=== PATIENT | female | born 1940 | race African-American/Black ===

== ENCOUNTER → 2016-11-20 | Outpatient (CLI) | payer MEDICARE ==
[2015-11-03 09:09] VITALS: BP 141/65
[~2016-11-20] MED LIST: AMLO10TA2 PO; ASPI-630 PO; LEVO75TA5 PO; LOSA100T6 PO; RANI150T2 PO
--- NOTE | 2016-11-20 09:46 | RAD ---
DATE: 11/20/2016 EXAM: DIGITAL DIAGNOSTIC BILATERAL HISTORY: 6 month follow-up breast biopsy COMPARISON: 05/22/2016 This study was interpreted with the benefit of Computerized Aided Detection (CAD). FINDINGS: Breast Density: HETERO The breast parenchyma Is heterogeneously dense, which could reduce sensitivity of mammography. Breast parenchyma level C. Nodular appearing bilateral breast similar to prior exam. Left breast biopsy clip marker identified IMPRESSION: Probably benign findings BI-RADS CATEGORY: 3 PROBABLE BENIGN-SHORT TERM F/U RECOMMENDED FOLLOW-UP: 6M 6 MONTH FOLLOW-UP PQRS compliance statement: Patient information was entered into a reminder system with a target due date 05/22/2017 for the next mammogram. Mammography is a sensitive method for finding small breast cancers, but it does not detect them all and is not a substitute for careful clinical examination. A negative mammogram does not negate a clinically suspicious finding and should not result in delay in biopsying a clinically suspicious abnormality. "Our facility is accredited by the [employer] Mammography Program."
== END | disposition home or self-care (01) ==
LOC: KCIC MAMMO 08:38
PROVIDERS: ATTEND Family Medicine
DX: R92.8 Other abnormal and inconclusive findings on diagnostic imaging of breast (principal)
CPT/HCPCS: G0204; 77066

== ENCOUNTER → 2017-01-22 | Outpatient (CLI) | payer MEDICARE ==
[2015-11-03 09:09] VITALS: BP 141/65
--- NOTE | 2017-01-22 16:25 | RAD ---
DOPPLER CAROTID BILAT Clinical Indication: Dizziness and unsteady gait. Procedure: Pulsed wave and color-flow duplex imaging was utilized to evaluate the extracranial carotid arteries. Comparison: None. Findings: RIGHT SIDE: Mild atherosclerotic plaques on grayscale images. CCA peak systolic velocity 80 cm/sec. ICA peak systolic velocity 100 cm/sec. The right ICA/CCA ratio is 1.24. Flow within the right vertebral artery and right ECA is directed antegrade. LEFT SIDE: moderate atherosclerotic plaque on stafford-scale images. CCA peak systolic velocity 107 cm/sec. ICA peak systolic velocity 148 cm/sec. The left ICA/CCA ratio is 2.2. Flow within the left vertebral artery and left ECA is directed antegrade. Carotid legend: CCA = common carotid artery ICA = internal carotid artery ECA = external carotid artery IMPRESSION: 1. Right carotid: No hemodynamically significant stenosis. Normal peak systolic velocity. 2. Left carotid: Elevated peak systolic velocity with moderate atherosclerotic disease corresponding to stenosis of 50-69%. Sign diagnostic
== END | disposition home or self-care (01) ==
LOC: US 15:25
PROVIDERS: ATTEND Family Medicine
DX: I70.8 Atherosclerosis of other arteries (principal); I65.22 Occlusion and stenosis of left carotid artery; R42 Dizziness and giddiness; I10 Essential (primary) hypertension
CPT/HCPCS: 93880

== ENCOUNTER → 2017-05-22 | Outpatient (CLI) | payer MEDICARE ==
[2015-11-03 09:09] VITALS: BP 141/65
--- NOTE | 2017-05-22 09:54 | KCIC ---
DATE: 05/22/2017 EXAM: MAMMO COURTNEY DIAG LT HISTORY: Six-month follow-up. Recent benign left breast biopsy. COMPARISON: 11/20/2016 This study was interpreted with the benefit of Computerized Aided Detection (CAD). The breast parenchyma shows scattered fibroglandular densities. Breast parenchyma level B. FINDINGS: Digital MLO and CC mammograms left breast were obtained. Additionally digital breast tomosynthesis images (3D mammography) of the left breast in the MLO and CC projections were performed. Comparison study is dated 11/20/2016. The left breast parenchyma is composed of scattered fibroglandular densities which could obscure a lesion on mammography (breast density code B). A localizer clip is seen within the left breast, unchanged. No spiculated mass is seen. No malignant appearing calcification is noted. Digital breast tomosynthesis images demonstrate no spiculated mass or malignant appearing calcification involving the left breast. Since the previous examination there has been no significant interval change. IMPRESSION: BI-RADS Category 2 benign findings. There is no mammographic evidence of malignancy. BI-RADS CATEGORY: 2 BENIGN FINDING(S) RECOMMENDED FOLLOW-UP: 12M 12 MONTH FOLLOW-UP PQRS compliance statement: Patient information was entered into a reminder system with a target due date 11/20/2017 for the next mammogram. Mammography is a sensitive method for finding small breast cancers, but it does not detect them all and is not a substitute for careful clinical examination. A negative mammogram does not negate a clinically suspicious finding and should not result in delay in biopsying a clinically suspicious abnormality. "Our facility is accredited by the [employer] Mammography Program."
== END | disposition home or self-care (01) ==
LOC: KCIC MAMMO 08:37
PROVIDERS: ATTEND Family Medicine
DX: R92.8 Other abnormal and inconclusive findings on diagnostic imaging of breast (principal)
CPT/HCPCS: G0206; G0279; 77061; 77065

== ENCOUNTER 2017-11-08 09:27 | Emergency (ER) | payer MEDICARE ==
[2017-11-08 10:40] LABS: ADD MAN DIFF? NO
[2017-11-08 10:55] LABS: BASO % 0 % (0-3); EOS # 0.1 x10^3/uL (0.0-0.7); EOS % 1 % (0-3); HEMATOCRIT 41.3 % (36.0-47.0); HEMOGLOBIN 14.5 g/dL (12.0-15.5); LYMPH # 0.7 x10^3/uL (1.0-4.8); LYMPH % 9 % (24-48); MEAN CORPUSCULAR HEMOGLOBIN 31 pg (25-35); MEAN CORPUSCULAR HGB CONC 35 g/dL (31-37); MEAN CORPUSCULAR VOLUME 90 fL (79-100); MONO # 0.5 x10^3/uL (0.0-1.1); MONO % 6 % (0-9); NEUT # 6.2 x10^3uL (1.8-7.7); NEUT % 83 % (31-73); PLATELET COUNT 272 x10^3/uL (140-400); RED BLOOD COUNT 4.61 x10^6/uL (3.50-5.40); RED CELL DISTRIBUTION WIDTH 13.9 % (11.5-14.5); WHITE BLOOD COUNT 7.5 x10^3/uL (4.0-11.0)
[2017-11-08 10:58] LABS: ANION GAP 9 (6-14); BLOOD UREA NITROGEN 15 mg/dL (7-20); CALCIUM 9.3 mg/dL (8.5-10.1); CARBON DIOXIDE 27 mmol/L (21-32); CHLORIDE 104 mmol/L (98-107); CREATININE 0.8 mg/dL (0.6-1.0); GFR 83.9; GLUCOSE 121 mg/dL (70-99); POTASSIUM 3.8 mmol/L (3.5-5.1); SODIUM 140 mmol/L (136-145)
[2017-11-08 11:10] LABS: TROPONINI < 0.017 ng/mL (0.000-0.055)
[2017-11-08 11:12] LABS: NT-PRO BNP 38 pg/mL (0-449)
[2017-11-08] MEDS ORDERED: IV NORMAL SALINE 500ML BAG 500 ML IV (12:45)
[2017-11-08 14:14] LABS: BILIRUBIN,URINE NEGATIVE (NEG); CLARITY,URINE CLEAR; COLOR,URINE YELLOW; GLUCOSE,URINE NEGATIVE (NEG); NITRITE,URINE NEGATIVE (NEG); PROTEIN,URINE NEGATIVE (NEG-TRACE); UROBILINOGEN,URINE 0.2 mg/dL (0.2 mg/dL)
[2017-11-08 14:19] LABS: BACTERIA,URINE 0 /HPF (0-FEW); RBC,URINE 0 /HPF (0-2); SQUAMOUS EPITHELIAL CELL,UR FEW /LPF; WBC,URINE 20-40 /HPF (0-4)
== END 2017-11-08 14:45 | disposition home or self-care (01) ==
LOC: ER 09:27
DX: R55 Syncope and collapse (principal); E86.0 Dehydration; N39.0 Urinary tract infection, site not specified; I10 Essential (primary) hypertension; E03.9 Hypothyroidism, unspecified; K21.9 Gastro-esophageal reflux disease without esophagitis
CPT/HCPCS: 36415; 71045; 80048; 81001; 83880; 84484; 85025; 87086; 93005; 99285-25

== ENCOUNTER → 2017-11-21 | Outpatient (CLI) | payer MEDICARE | END | disposition home or self-care (01) | LOC: MAMMO 08:39 | DX: Z12.31 Encounter for screening mammogram for malignant neoplasm of breast (principal) | CPT/HCPCS: 77063; 77067 ==

== ENCOUNTER → 2017-12-30 | Outpatient (CLI) | payer MEDICARE | END | disposition home or self-care (01) | LOC: KCIC US 09:07 | DX: Z13.820 Encounter for screening for osteoporosis (principal); M85.88 Other specified disorders of bone density and structure, other site; I65.23 Occlusion and stenosis of bilateral carotid arteries; I10 Essential (primary) hypertension; E03.9 Hypothyroidism, unspecified; K21.9 Gastro-esophageal reflux disease without esophagitis; Z78.0 Asymptomatic menopausal state | CPT/HCPCS: 77080; 93880 ==

== ENCOUNTER → 2018-11-24 | Outpatient (CLI) | payer MEDICARE ==
[2017-11-08 14:22] VITALS: BP 139/76
[~2018-11-24] MED LIST changes: -AMLO10TA2 PO; +AMLO10TA8 PO; +LOSA100T14 PO; -LOSA100T6 PO; +NITR100C62 PO
--- NOTE | 2018-11-26 09:22 | RAD ---
DATE: 11/24/2018 8:00 AM EXAM: MAMMO COURTNEY SCREENING BILATERAL HISTORY: routine screening evaluation. COMPARISON: 09/15/2014 Bilateral CC and MLO views of the breasts were performed. Bilateral breast tomosynthesis was performed in CC and MLO projections. This study was interpreted with the benefit of Computerized Aided Detection (CAD). Breast Density: The breast parenchyma shows scattered fibroglandular densities. Breast parenchyma level B. FINDINGS: Benign calcifications are present. The parenchymal pattern appears stable. No suspicious masses, microcalcifications or architectural distortion is present to suggest malignancy in either breast. The visualized axillae are unremarkable. IMPRESSION: No mammographic evidence of malignancy. BI-RADS CATEGORY: 2 BENIGN FINDING(S) RECOMMENDED FOLLOW-UP: 12M 12 MONTH FOLLOW-UP Annual screening mammography is recommended, unless clinically indicated sooner based on symptoms or change in physical exam. PQRS compliance statement: Patient information was entered into a reminder system with a target due date 11/25/2019 for the next mammogram. Mammography is a sensitive method for finding small breast cancers, but it does not detect them all and is not a substitute for careful clinical examination. A negative mammogram does not negate a clinically suspicious finding and should not result in delay in biopsying a clinically suspicious abnormality. "Our facility is accredited by the [employer] Mammography Program." SALAZARD
== END | disposition home or self-care (01) ==
LOC: MAMMO 08:21
PROVIDERS: ATTEND Family Medicine
DX: Z12.31 Encounter for screening mammogram for malignant neoplasm of breast (principal); N64.89 Other specified disorders of breast
CPT/HCPCS: 77063; 77067

== ENCOUNTER 2019-09-13 09:44 | Inpatient (IN) | payer MEDICARE ==
[~2019-09-13] VITALS: Ht 152.4 cm; Wt 58.8 kg
[2019-09-13 10:29] LABS: BASO % 0 % (0-3); EOS % 0 % (0-3); HEMATOCRIT 38.5 % (36.0-47.0); HEMOGLOBIN 13.2 g/dL (12.0-15.5); LYMPH % 11 % (24-48); MEAN CORPUSCULAR HEMOGLOBIN 30 pg (25-35); MEAN CORPUSCULAR HGB CONC 34 g/dL (31-37); MEAN CORPUSCULAR VOLUME 87 fL (79-100); MONO # 0.8 x10^3/uL (0.0-1.1); MONO % 9 % (0-9); NEUT # 7.2 x10^3/uL (1.8-7.7); NEUT % 80 % (31-73); PLATELET COUNT 390 x10^3/uL (140-400); RED CELL DISTRIBUTION WIDTH 13.6 % (11.5-14.5); WHITE BLOOD COUNT 9.1 x10^3/uL (4.0-11.0)
[2019-09-13 10:39] LABS: PROTHROMBIN TIME PATIENT 12.8 SEC (11.7-14.0)
--- NOTE | 2019-09-13 10:41 | RAD ---
CHEST AP ONLY INDICATION: Cough, dyspnea. COMPARISON STUDY: 11/08/2017. FINDINGS: Lungs: Low lung volume. Patchy bilateral heterogeneous opacities. Indistinct pulmonary vasculature. Pleura: No pleural effusion or pneumothorax. Heart and Mediastinum: Normal cardiac size. Tortuous atherosclerotic aorta. IMPRESSION: Patchy bilateral heterogeneous opacities, which could represent pulmonary edema or multifocal infection. Electronically signed by: Devin Greenfield MD (09/13/2019 10:38 AM) [id number]
[2019-09-13 10:42] LABS: CREATININE 0.9 mg/dL (0.6-1.0); GFR 72.9; POTASSIUM 3.7 mmol/L (3.5-5.1)
[2019-09-13] MEDS ORDERED: cefTRIAXone IV Push 1 GM VIAL. IVP ONE (10:45)
[2019-09-13] MEDS ORDERED: AZITHRMYCN 500MG IVPB FOR OMNI 250 ML IV ONE (10:45)
[2019-09-13 10:47] LABS: ALBUMIN 2.7 g/dL (3.4-5.0); ALBUMIN/GLOBULIN RATIO 0.7 (1.0-1.7); MAGNESIUM 2.3 mg/dL (1.8-2.4); TOTAL BILIRUBIN 0.5 mg/dL (0.2-1.0); TOTAL PROTEIN 6.5 g/dL (6.4-8.2)
--- NOTE | 2019-09-13 11:05 | PHYS DOC ---
Past Medical History Past Medical History: GERD, Hypertension, Hypothyroid Past Surgical History: Other Additional Past Surgical Histo: Cataract, D&C Smoking Status: Never Smoker Alcohol Use: None Drug Use: None General Adult EDM: Chief Complaint: SHORTNESS OF BREATH HPI: HPI: Patient is a 78 year old female who was brought here by EMS from home due to trouble breathing and cough. Patient was exposed to her friend who has COVID-19 infection, patient was then tested positive for COVID-19 on September 01. Yesterday she started having trouble breathing. This morning she woke up she had more trouble breathing so EMS were called to take her here for evaluation. Patient has history hypertension. Patient denies any chest pain, no abdominal pain, no fever today. Patient says she has been quarantined herself home. Review of Systems: Review of Systems: Constitutional: Denies fever or chills. [] Eyes: Denies change in visual acuity. [] HENT: Denies nasal congestion or sore throat. [] Respiratory: Positive for cough or shortness of breath. [] Cardiovascular: Denies chest pain or edema. [] GI: Denies abdominal pain, nausea, vomiting, bloody stools or diarrhea. [] : Denies dysuria. [] Musculoskeletal: Denies back pain or joint pain. [] Integument: Denies rash. [] Neurologic: Denies headache, focal weakness or sensory changes. [] Endocrine: Denies polyuria or polydipsia. [] Lymphatic: Denies swollen glands. [] Psychiatric: Denies depression or anxiety. [] Heart Score: Risk Factors: Risk Factors: DM, Current or recent (<one month) smoker, HTN, HLP, family history of CAD, obesity. Risk Scores: Score 0 - 3: 2.5% MACE over next 6 weeks - Discharge Home Score 4 - 6: 20.3% MACE over next 6 weeks - Admit for Clinical Observation Score 7 - 10: 72.7% MACE over next 6 weeks - Early Invasive Strategies Current Medications: Current Medications Medications (Trade) Dose Ordered Sig/Meet Start Time Stop Time Status Last Admin Dose Admin Azithromycin 250 ml @ 250 mls/hr 1X ONCE 09/13/19 10:45 09/13/19 11:44 Ceftriaxone Sodium (Rocephin) 1 gm 1X ONCE 09/13/19 10:45 09/13/19 10:49 FL Allergies: Allergies: Allergies Coded Allergies Type Severity Reaction Last Updated Verified No Known Drug Allergies 11/03/15 No Physical Exam: PE: Constitutional: Well developed, well nourished, no acute distress, non-toxic appearance. [] HENT: Normocephalic, atraumatic, bilateral external ears normal, oropharynx moist, no oral exudates, nose normal. [] Eyes: PERRLA, EOMI, conjunctiva normal, no discharge. [] Neck: Normal range of motion, no tenderness, supple, no stridor. [] Cardiovascular:Heart rate regular rhythm, no murmur [] Lungs & Thorax: Bilateral breath sounds with diffused crackles to auscultation [] Abdomen: Bowel sounds normal, soft, no tenderness, no masses, no pulsatile masses. [] Skin: Warm, dry, no erythema, no rash. [] Back: No tenderness, no CVA tenderness. [] Extremities: No tenderness, no cyanosis, no clubbing, ROM intact, no edema. [] Neurologic: Alert and oriented X 3, normal motor function, normal sensory function, no focal deficits noted. [] Psychologic: Affect normal, judgement normal, mood normal. [] Current Patient Data: Labs: Laboratory Tests Test 09/13/19 10:12 White Blood Count 9.1 x10^3/uL (4.0-11.0) Red Blood Count 4.40 x10^6/uL (3.50-5.40) Hemoglobin 13.2 g/dL (12.0-15.5) Hematocrit 38.5 % (36.0-47.0) Mean Corpuscular Volume 87 fL (79-100) Mean Corpuscular Hemoglobin 30 pg (25-35) Mean Corpuscular Hemoglobin Concent 34 g/dL (31-37) Red Cell Distribution Width 13.6 % (11.5-14.5) Platelet Count 390 x10^3/uL (140-400) Neutrophils (%) (Auto) 80 % (31-73) H Lymphocytes (%) (Auto) 11 % (24-48) L Monocytes (%) (Auto) 9 % (0-9) Eosinophils (%) (Auto) 0 % (0-3) Basophils (%) (Auto) 0 % (0-3) Neutrophils # (Auto) 7.2 x10^3/uL (1.8-7.7) Lymphocytes # (Auto) 1.0 x10^3/uL (1.0-4.8) Monocytes # (Auto) 0.8 x10^3/uL (0.0-1.1) Eosinophils # (Auto) 0.0 x10^3/uL (0.0-0.7) Basophils # (Auto) 0.0 x10^3/uL (0.0-0.2) Prothrombin Time 12.8 SEC (11.7-14.0) Prothrombin Time INR 1.0 (0.8-1.1) Activated Partial Thromboplast Time 32 SEC (24-38) Sodium Level 139 mmol/L (136-145) Potassium Level 3.7 mmol/L (3.5-5.1) Chloride Level 102 mmol/L (98-107) Carbon Dioxide Level 29 mmol/L (21-32) Anion Gap 8 (6-14) Blood Urea Nitrogen 12 mg/dL (7-20) Creatinine 0.9 mg/dL (0.6-1.0) Estimated GFR (Cockcroft-Gault) 72.9 BUN/Creatinine Ratio 13 (6-20) Glucose Level 122 mg/dL (70-99) H Calcium Level 9.0 mg/dL (8.5-10.1) Magnesium Level 2.3 mg/dL (1.8-2.4) Total Bilirubin 0.5 mg/dL (0.2-1.0) Aspartate Amino Transferase (AST) 61 U/L (15-37) H Alanine Aminotransferase (ALT) 51 U/L (14-59) Alkaline Phosphatase 81 U/L (46-116) Troponin I Quantitative < 0.017 ng/mL (0.000-0.055) QP-Wmv-U-Type Natriuretic Peptide 272 pg/mL (0-449) Total Protein 6.5 g/dL (6.4-8.2) Albumin 2.7 g/dL (3.4-5.0) L Albumin/Globulin Ratio 0.7 (1.0-1.7) L Laboratory Tests 09/13/19 10:12 Laboratory Tests 09/13/19 10:12 Vital Signs: Vital Signs Date Time Temp Pulse Resp B/P (MAP) Pulse Ox O2 Delivery O2 Flow Rate FiO2 09/13/19 09:44 99.0 92 18 144/68 (93) 94 Nasal Cannula 3.0 99.0 EKG: EKG: EKG WAS [id number], HEART RATE OF 93 BPM, NO STEMI Radiology/Procedures: Radiology/Procedures: [][facility] [address] [place] [address] IMAGING REPORT Signed PATIENT: LUH DOMINGUEZ ACCOUNT: [id number] : 1940 LOCATION: ER AGE: 78 SEX: F EXAM STATUS: PRE ER ORD. PHYSICIAN: EDWARD DUNN DO REASON: cough, soa PROCEDURE: CHEST AP ONLY CHEST AP ONLY INDICATION: Cough, dyspnea. COMPARISON STUDY: 11/08/2017. FINDINGS: Lungs: Low lung volume. Patchy bilateral heterogeneous opacities. Indistinct pulmonary vasculature. Pleura: No pleural effusion or pneumothorax. Heart and Mediastinum: Normal cardiac size. Tortuous atherosclerotic aorta. IMPRESSION: Patchy bilateral heterogeneous opacities, which could represent pulmonary edema or multifocal infection. Electronically signed by: Joni Greenfield MD (09/13/2019 10:38 AM) [id number] DICTATED and SIGNED BY: JONI GREENFIELD MD DATE: 09/13/19 1038 Course & Med Decision Making: Course & Med Decision Making Pertinent Labs and Imaging studies reviewed. (See chart for details) Patient is an 78-year-old female with the new coronavirus infection, had pneumonia with bilateral infiltrations, requires oxygen, will admit to the hospital for treatment. COVID-19 CRITERIA: The patient was evaluated during the global COVID-19 pandemic, and that diagnosis was suspected/considered upon their initial presentation. Their evaluation, treatment and testing was consistent with current guidelines for patients who present with complaints or symptoms that may be related to COVID-19. Critical care time was [45] minutes which includes time at bedside, spent in discussion of patient's care with specialist and/or family members, with interpretation of laboratory and/or radiological studies and is exclusive of procedures. Dragon Disclaimer: Dragon Disclaimer: This electronic medical record was generated, in whole or in part, using a voice recognition dictation system. Departure Departure Impression: Primary Impression: COVID-19 virus infection Additional Impression: Pneumonia Disposition: 09 ADMITTED INPATIENT Admitting Physician: GENE (DR. DIEHL) Condition: STABLE Referrals: SHYLA ANTHONY MD (PCP) COVID-19 Assessment: COVID-19 Patient Risks: Age 65 or older: Yes Sign of co-morbidity: Yes Exp to person + for COVID: Yes Exp to PUI: Yes Travel from affected area: No Lower respiratory symptoms: Yes Fever: No Other: No PPE Use: Full PPE with N95 mask or PAPR: Yes (FULLE PPE WITH PAPR) EDWARD DUNN DO Sep 13, 2019 11:05
[2019-09-13] MEDS ORDERED: ONDANSETRON PF 4 MG/2 ML VIAL. IV PRN (11:30)
--- NOTE | 2019-09-13 12:16 | NUR ---
IP: Pt admitted with dx of COVID, confirmed on 09/02/19 requiring pt to be in airborne/contact precautions using a face shield.
--- NOTE | 2019-09-13 12:51 | HP ---
ADMIT DATE: 09/13/2019 CHIEF COMPLAINT: Shortness of breath. HISTORY OF PRESENT ILLNESS: The patient is a pleasant 78-year-old female who tested positive for COVID-19 back on 09/02/2019. She is now 12 days into this and she is still having symptoms. In fact, she states she thinks she had it for another 10 days prior to this so in total, she had it for probably 20 days. She is now still short of breath. Chest x-ray showing bilateral infiltrates. She has a low-grade fever of 99. Her sats were little low at 94% on 3 liters. I discussed the case with ER physician. We are going to admit the patient, put her on IV antibiotics, azithromycin, Plaquenil, vitamins and consult Pulmonary and Infectious Disease. PAST MEDICAL HISTORY: GERD, hypertension, hypothyroidism, cataracts, D and C and recent diagnosis of COVID-19. ALLERGIES: None. FAMILY HISTORY: Diabetes. SOCIAL HISTORY: She does not drink, smoke or take drugs. MEDICATIONS: Reviewed, please refer to the MRAD. REVIEW OF SYSTEMS: GENERAL: No history of weight change, weakness or fevers. SKIN: No bruising, hair changes or rashes. EYES: No blurred, double or loss of vision. NOSE AND THROAT: No history of nosebleeds, hoarseness or sore throat. HEART: No history of palpitations, chest pain or shortness of breath on exertion. LUNGS: she complains of shortness of breath. GASTROINTESTINAL: Denies changes in appetite, nausea, vomiting, diarrhea or constipation. GENITOURINARY: No history of frequency, urgency, hesitancy or nocturia. NEUROLOGIC: Denies history of numbness, tingling, tremor or weakness. PSYCHIATRIC: No history of panic, anxiety or depression. ENDOCRINE: No history of heat or cold intolerance, polyuria or polydipsia. EXTREMITIES: Denies muscle weakness, joint pain, pain on walking or stiffness. PHYSICAL EXAMINATION: VITALS: Within normal limits and are stable. GENERAL: No apparent distress. Alert and oriented. HEENT: Normal cephalic atraumatic, external auditory canals are patent EYES: Extraocular muscles are intact, pupils are equally round and reactive to light and accommodation MUSCULOSKELETAL: Well developed, well nourished, good range of motion ENDOCRINE: No thyromegaly was palpated LYMPHATICS: No cervical chain or axillary nodes were noted HEMATOPOIETIC: No bruising NECK: Supple, no JVD, no thyromegaly was noted. LUNGS: She has bibasilar crackles. HEART: RRR, S1, S2 present. Peripheral pulses intact, no obvious murmurs were noted. ABDOMEN: Soft, nontender. Positive bowel sounds no organomegaly, normal bowel sounds. EXTREMITIES: Without any cyanosis, clubbing, or edema. Pedal pulses intact, Homans sign is negative. NEUROLOGIC: Normal speech, normal tone. A & O x 3, moves all extremities, no obvious focal deficits. PSYCHIATRIC: Normal affect, normal mood. Stable. SKIN: No ulcerations or rashes, good skin turgor, no jaundice. VASCULAR: Good capillary refill, neurovascular bundle appears to be intact. IMAGING: Chest x-ray shows bilateral ground glass appearance consistent with probable viral pneumonia and/or bacterial pneumonia. LABORATORY DATA: White count 9, hemoglobin 13, platelets 390. Electrolytes are normal. ASSESSMENT AND PLAN: Bilateral pneumonia. Suspect progression of COVID-19 disease. The patient is being admitted. We will start IV antibiotics. Consult Pulmonary, consult Infectious Disease. Home meds, DVT prophylaxis. Full code, trend labs. TOTAL TIME: 32 minutes. TRACEY DIEHL DO DR: ALONDRA/alexa JOB#: [id number] / [id number]
[2019-09-13] MEDS ORDERED: FAMO20TA5 PO (14:00)
[2019-09-13] MEDS ORDERED: OLME40TA12 PO (14:04)
[2019-09-13 15:00] VITALS: BP 133/60
--- NOTE | 2019-09-13 15:04 | PDOC ---
Infectious Disease Note Vital Sign Vital Signs Vital Signs Date Time Temp Pulse Resp B/P (MAP) Pulse Ox O2 Delivery O2 Flow Rate FiO2 09/13/19 12:31 87 16 122/58 (79) 98 Nasal Cannula 3.0 09/13/19 09:44 99.0 99.0 Labs Lab Laboratory Tests Test 09/13/19 10:12 White Blood Count 9.1 x10^3/uL (4.0-11.0) Red Blood Count 4.40 x10^6/uL (3.50-5.40) Hemoglobin 13.2 g/dL (12.0-15.5) Hematocrit 38.5 % (36.0-47.0) Mean Corpuscular Volume 87 fL (79-100) Mean Corpuscular Hemoglobin 30 pg (25-35) Mean Corpuscular Hemoglobin Concent 34 g/dL (31-37) Red Cell Distribution Width 13.6 % (11.5-14.5) Platelet Count 390 x10^3/uL (140-400) Neutrophils (%) (Auto) 80 % (31-73) Lymphocytes (%) (Auto) 11 % (24-48) Monocytes (%) (Auto) 9 % (0-9) Eosinophils (%) (Auto) 0 % (0-3) Basophils (%) (Auto) 0 % (0-3) Neutrophils # (Auto) 7.2 x10^3/uL (1.8-7.7) Lymphocytes # (Auto) 1.0 x10^3/uL (1.0-4.8) Monocytes # (Auto) 0.8 x10^3/uL (0.0-1.1) Eosinophils # (Auto) 0.0 x10^3/uL (0.0-0.7) Basophils # (Auto) 0.0 x10^3/uL (0.0-0.2) Prothrombin Time 12.8 SEC (11.7-14.0) Prothromb Time International Ratio 1.0 (0.8-1.1) Activated Partial Thromboplast Time 32 SEC (24-38) Sodium Level 139 mmol/L (136-145) Potassium Level 3.7 mmol/L (3.5-5.1) Chloride Level 102 mmol/L (98-107) Carbon Dioxide Level 29 mmol/L (21-32) Anion Gap 8 (6-14) Blood Urea Nitrogen 12 mg/dL (7-20) Creatinine 0.9 mg/dL (0.6-1.0) Estimated GFR (Cockcroft-Gault) 72.9 BUN/Creatinine Ratio 13 (6-20) Glucose Level 122 mg/dL (70-99) Lactic Acid Level 1.6 mmol/L (0.4-2.0) Calcium Level 9.0 mg/dL (8.5-10.1) Magnesium Level 2.3 mg/dL (1.8-2.4) Total Bilirubin 0.5 mg/dL (0.2-1.0) Aspartate Amino Transf (AST/SGOT) 61 U/L (15-37) Alanine Aminotransferase (ALT/SGPT) 51 U/L (14-59) Alkaline Phosphatase 81 U/L (46-116) Troponin I Quantitative < 0.017 ng/mL (0.000-0.055) [id number]-Type Natriuretic Peptide 272 pg/mL (0-449) Total Protein 6.5 g/dL (6.4-8.2) Albumin 2.7 g/dL (3.4-5.0) Albumin/Globulin Ratio 0.7 (1.0-1.7) Objective Assessment Acute respiratory failure with patchy bilateral opacities, reportedly positive for COVID-19. On 3L O2 -QT interval 0.32 sec -Reportedly [facility] dept notified patient that she tested positive on 09/01 -Exposed from a friend who has since from COVID. Fever Hypertension Hypothyroidism Plan Plan of Care Unable to confirm test results as both [facility] dept and PCP office are closed She is nearly 14 days out, repeat COVID -19. Also check influenza, strep pneumo Ag & mycoplasma as these have been found to occur concurrently with COVID-19. The 1st dose of Azithromycin and hydroxychloraquine were given in ER. Monitor QT interval/side effects Continue the Rocephin and azithromycin for 4 more days. Continue airborne isolation for presumptive COVID-19 f/u cultures and labs D/w nursing D/w Dr Mueller D/w Dr. Araya Full consult to follow Thank you [id number] Patient seen and examined. Chart reviewed in detail. Case discussed with TABLET MACHINE OPERATOR. Agree with above plan. ABDIRIZAK METZGER APRN Sep 13, 2019 15:04 FELICITA ARAYA MD Sep 14, 2019 17:48
[2019-09-13] MEDS: HYDROXYCHLOROQUINE (PROGRAM) 200 MG TABLET PO SCH ×2 (15:49→21:35)
[2019-09-13] MEDS: IV NORMAL SALINE 1000ML BAG 1,000 ML IV SCH (15:55)
[2019-09-13 19:00] VITALS: BP 141/65
[2019-09-13 19:22] LABS: INFLUENZA A PATIENT NEGATIVE (NEGATIVE); INFLUENZA B PATIENT NEGATIVE (NEGATIVE)
[2019-09-13] MEDS ORDERED: ASCO-219 PO (20:02)
[2019-09-13 20:24] LABS: MYCOPLASMA PATIENT NEGATIVE (NEGATIVE)
--- NOTE | 2019-09-13 20:51 | CONS ---
DATE OF CONSULTATION: 09/13/2019 PULMONARY CONSULTATION ATTENDING PHYSICIAN: Eda Dailey MD REASON FOR CONSULTATION: Pneumonia and COVID-19 positive. HISTORY OF PRESENT ILLNESS: The patient is 78-year-old who was tested positive for COVID-19 on 09/02/2019. The patient states that she continues to have persistent symptoms with gradual increase in dyspnea. The patient was still having low-grade fevers. She was, as a result, hospitalized. Her saturations were 94% on 3 liters. The patient's chest x-ray was reviewed, and it shows bilateral infiltrates consistent with pneumonia. She denies any nausea, no vomiting. She said she had diarrhea only for a day and it has resolved. She does not have any history of tobacco use. No history of deep vein thrombosis or pulmonary embolism. PAST MEDICAL HISTORY: Significant for GERD, hypertension, hypothyroidism, and cataracts. PAST SURGICAL HISTORY: D and C. ALLERGIES: None. FAMILY HISTORY: Diabetes. SOCIAL HISTORY: No history of tobacco or alcohol use. MEDICATIONS: Reviewed as listed in the MRAD including antibiotic, Rocephin and Zithromax along with hydroxychloroquine. REVIEW OF SYSTEMS: Ten-point systems were obtained. Pertinent positives discussed in my history of present illness, otherwise noncontributory. All systems that were negative were reviewed as well. FAMILY HISTORY: Unable to obtain from the patient. PHYSICAL EXAMINATION: GENERAL: She does not appear to be in any obvious respiratory distress, appears ill appearing. VITAL SIGNS: T-max of 100.8 and pulse ox is 98% on 3 liters. NECK: Without any JVD. SKIN: With no rash. IMAGING: Chest x-ray was reviewed, and it shows bilateral infiltrates consistent with pneumonia. LABORATORY DATA: Labs were reviewed. Influenza screen is negative. BUN 12, creatinine 0.9, albumin 2.7. INR 1.0. White cell count 9.1, hemoglobin 13.2 and platelets are 390. IMPRESSION: 1. COVID-19 pneumonia. 2. Acute hypoxic respiratory failure secondary to COVID-19 pneumonia. 3. Abnormal chest x-ray with bilateral infiltrates suggestive of COVID-19 pneumonia. Cannot exclude the possibility of superimposed bacterial pneumonia. 4. Nonsmoker. RECOMMENDATIONS: 1. We will continue with present oxygen, keep saturation 94% and above. 2. Continue antibiotic, Rocephin and Zithromax. Zithromax will be stopped on day 5. In addition, hydroxychloroquine has been initiated and the patient will do 5-day course. 3. We will obtain EKG and make sure QTc interval is not prolonged. 4. We will follow chest x-ray p.r.n. 5. We will also follow for her stability on oxygenation. 6. Discussed with RN and we will follow along with you. ANDRZEJ MOORE MD DR: BILLY/alexa JOB#: [id number] / [id number]
[2019-09-13] MEDS: ASCORBIC ACID 500 MG TABLET PO SCH (21:34)
--- NOTE | 2019-09-13 22:23 | CONS ---
DATE OF CONSULTATION: 09/13/2019 This is Clyde Kan, nurse practitioner dictating for Dr. Felicita Araya of Infectious Disease. REFERRING PHYSICIAN: Dr. Griggs. REASON FOR CONSULTATION: COVID-19, pneumonia. HISTORY OF PRESENT ILLNESS: This patient is an 78-year-old -[place] female who 2 weeks ago started not to feel very well with low-grade fevers. She self-quarantined as she was aware of being exposed to COVID-19 virus (from a friend who later ). She was seen by her primary care provider, Dr. Arellano on 09/02/2019 and reportedly was informed of having COVID-19 infection by [facility]. Over the last day or so, she has developed worsening cough, trouble breathing and fevers. A chest x-ray showed patchy bilateral heterogeneous opacities, which could represent pulmonary edema or multifocal infection. Given her history and findings she was given a first dose of azithromycin and hydroxychloroquine in the ER. She is now in airborne isolation. The patient states that she is feeling a little bit better. She is requiring 3 liters of oxygen and satting above 95%. She complains of a mild headache, persistent cough with phlegm production. She denies sinus congestion, sore throat, chest pain, chills, sweats or body aches. She has not been very hungry. She finds that food and even water taste funny to her . She denies nausea, vomiting or diarrhea. Denies rash or itching. She denies use of antibiotics or hospitalizations within the last 3 months. She denies recent traveling or pets at home. PAST MEDICAL HISTORY: Hypertension, GERD, arthritis, and hypothyroidism. PAST SURGICAL HISTORY: Cataract surgery and D and C. SOCIAL HISTORY: The patient lives at home alone. She is a nonsmoker. 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 ALLERGIES: No known drug allergies. MEDICATIONS: First dose of hydroxychloroquine, azithromycin, ceftriaxone, amlodipine, aspirin, Pepcid, Synthroid, losartan, and ondansetron. REVIEW OF SYSTEMS: Per HPI, otherwise all other review of systems are negative. PHYSICAL EXAMINATION: VITAL SIGNS: Temperature is 99.0, blood pressure 122/58, heart rate 87, respiratory rate 16, and pulse oximetry is 98% on 3 liters. BMI 21. GENERAL: The patient is propped up in bed, alert, in no apparent distress. HEENT: Pupils equally round. Oropharynx is pink and moist. No exudates or lesions. NECK: Supple. LUNGS: Clear to auscultation. No accessory muscle use. HEART: S1 and S2 regular. QT interval 0.32 seconds. ABDOMEN: Soft, nontender with bowel sounds present. EXTREMITIES: No gross edema or cyanosis. SKIN: Warm to touch. No signs of rash. NEUROLOGIC: Alert and answering questions appropriately. LABORATORY DATA: Today's WBC 9.1, hemoglobin 13.2, and platelets 390,000. Sodium 139, potassium 3.7, creatinine 0.9, BUN 12, and glucose 122. Lactic acid 1.6, magnesium 2.3, total bilirubin 0.5, AST 61, and ALT 51. Troponin less than 0.017 and albumin 2.7. Blood cultures and urinalysis pending. Chest x-ray per HPI. IMPRESSION: 1. Acute respiratory failure with patchy bilateral opacities reportedly positive for COVID-19. 2. Fever. 3. Hypertension. 4. Hypothyroidism. PLAN: I unable to confirm test results as both [facility] and her primary care provider's office are closed. She is nearly 14 days out now. Recommend repeating COVID-19. Also, recommend testing for influenza, strep pneumonia and mycoplasma as these have been found to occur concurrently with COVID-19. She received a first dose of azithromycin and hydroxychloroquine in the ER. Monitor QT interval and side effects. Continue the ceftriaxone and azithromycin for 4 more days. Continue airborne isolation. We will follow up on culture results and laboratory values. We will continue to follow along. Discussed with nursing. Thank you, Dr. Griggs, for asking us to participate in this patient's care. Should you have further questions or concerns, please call. FELICITA ARAYA MD DR: JOSE L/alexa JOB#: [id number] / [id number]
--- NOTE | 2019-09-13 22:41 | EKG ---
[facility] [address] [place] [address] Test Date: 2019-09-13 Test Time: 09:57:54 Pat Name: LUH DOMINGUEZ Department: Room: 654 1 Gender: F Compliance Associate: : [id number] Requested By: EDWARD DUNN Order Number: [id number] Reading MD: Aris Antonio MD Measurements Intervals Davis Rate: 93 P: 19 IA: 156 QRS: 1 QRSD: 128 T: 124 QT: 366 QTc: 458 Interpretive Statements SINUS RHYTHM IVCD Electronically Signed On 09-14-2019 9:48:36 CDT by Aris Antonio MD
[2019-09-13 23:04] VITALS: BP 110/77
[2019-09-14] MEDS: IV NORMAL SALINE 1000ML BAG 1,000 ML IV SCH (00:38)
[2019-09-14] MEDS: LEVOTHYROXINE 75 MCG TABLET PO SCH (03:16)
[2019-09-14 03:33] VITALS: BP 112/57
[2019-09-14] MEDS ORDERED: LEVOTHYROXINE 75 MCG TABLET PO SCH (06:00)
[2019-09-14 06:09] LABS: BASO % 0 % (0-3); EOS % 0 % (0-3); HEMATOCRIT 32.1 % (36.0-47.0); HEMOGLOBIN 10.9 g/dL (12.0-15.5); LYMPH % 11 % (24-48); MEAN CORPUSCULAR HEMOGLOBIN 30 pg (25-35); MEAN CORPUSCULAR HGB CONC 34 g/dL (31-37); MEAN CORPUSCULAR VOLUME 88 fL (79-100); MONO # 1.1 x10^3/uL (0.0-1.1); MONO % 13 % (0-9); NEUT # 6.3 x10^3/uL (1.8-7.7); NEUT % 75 % (31-73); PLATELET COUNT 350 x10^3/uL (140-400); RED BLOOD COUNT 3.64 x10^6/uL (3.50-5.40); RED CELL DISTRIBUTION WIDTH 13.7 % (11.5-14.5); WHITE BLOOD COUNT 8.5 x10^3/uL (4.0-11.0)
[2019-09-14 06:25] LABS: CREATININE 0.7 mg/dL (0.6-1.0); GFR 97.4; POTASSIUM 3.9 mmol/L (3.5-5.1)
[2019-09-14 07:00] VITALS: BP 121/57
[2019-09-14] MEDS: cefTRIAXone IV Push 1 GM VIAL. IVP SCH (08:47)
[2019-09-14] MEDS: amLODIPine BESYLATE 5 MG TABLET PO SCH (08:47)
[2019-09-14] MEDS: LOSARTAN POTASSIUM 50 MG TABLET. PO SCH (08:47)
[2019-09-14] MEDS: ASCORBIC ACID 500 MG TABLET PO SCH ×2 (08:47→20:42)
[2019-09-14] MEDS: ASPIRIN CHEWABLE 81 MG TABLET. PO SCH (08:48)
[2019-09-14] MEDS: FAMOTIDINE 20 MG TABLET. PO SCH (08:48)
[2019-09-14] MEDS ORDERED: AZITHROMYCIN 250 MG TABLET. PO SCH (09:00)
--- NOTE | 2019-09-14 10:52 | NUR ---
SW following. Discussed with RN, pt from home. Pt tested positive for COVID-19 some time ago, being retested. Pt requiring 3L oxygen, which pt does not have at home. SW will continue to follow.
[2019-09-14 11:04] VITALS: BP 131/58
--- NOTE | 2019-09-14 11:27 | PDOC ---
Infectious Disease Note Subjective Subjective eeling some better. Had a little bit of an appetite this am Constipated Fever better. No gross SOA/rash ROS ROS o/w neg Vital Sign Vital Signs Vital Signs Date Time Temp Pulse Resp B/P (MAP) Pulse Ox O2 Delivery O2 Flow Rate FiO2 09/14/19 11:04 99.8 86 19 131/58 (82) 94 Nasal Cannula 3.0 99.8 Physical Exam PHYSICAL EXAM GENERAL: The patient is propped up in a chair, alert, in no apparent distress. Looks well HEENT: Pupils equally round. Oropharynx is pink and moist. No exudates or lesions. NECK: Supple. LUNGS: Clear to auscultation. No accessory muscle use. HEART: S1 and S2 regular. QT interval 0.32 seconds. ABDOMEN: Soft, nontender with bowel sounds present. EXTREMITIES: No gross edema or cyanosis. SKIN: Warm to touch. No signs of rash. NEUROLOGIC: Alert and answering questions appropriately. Labs Lab Laboratory Tests Test 09/13/19 18:30 09/14/19 04:55 Influenza Type A Antigen Negative (NEGATIVE) Influenza Type B Antigen Negative (NEGATIVE) White Blood Count 8.5 x10^3/uL (4.0-11.0) Red Blood Count 3.64 x10^6/uL (3.50-5.40) Hemoglobin 10.9 g/dL (12.0-15.5) Hematocrit 32.1 % (36.0-47.0) Mean Corpuscular Volume 88 fL (79-100) Mean Corpuscular Hemoglobin 30 pg (25-35) Mean Corpuscular Hemoglobin Concent 34 g/dL (31-37) Red Cell Distribution Width 13.7 % (11.5-14.5) Platelet Count 350 x10^3/uL (140-400) Neutrophils (%) (Auto) 75 % (31-73) Lymphocytes (%) (Auto) 11 % (24-48) Monocytes (%) (Auto) 13 % (0-9) Eosinophils (%) (Auto) 0 % (0-3) Basophils (%) (Auto) 0 % (0-3) Neutrophils # (Auto) 6.3 x10^3/uL (1.8-7.7) Lymphocytes # (Auto) 1.0 x10^3/uL (1.0-4.8) Monocytes # (Auto) 1.1 x10^3/uL (0.0-1.1) Eosinophils # (Auto) 0.0 x10^3/uL (0.0-0.7) Basophils # (Auto) 0.0 x10^3/uL (0.0-0.2) Sodium Level 141 mmol/L (136-145) Potassium Level 3.9 mmol/L (3.5-5.1) Chloride Level 107 mmol/L (98-107) Carbon Dioxide Level 25 mmol/L (21-32) Anion Gap 9 (6-14) Blood Urea Nitrogen 9 mg/dL (7-20) Creatinine 0.7 mg/dL (0.6-1.0) Estimated GFR (Cockcroft-Gault) 97.4 Glucose Level 99 mg/dL (70-99) Calcium Level 8.0 mg/dL (8.5-10.1) Micro Microbiology 09/13/19 Blood Culture - Preliminary, Resulted NO GROWTH AFTER 1 DAY Objective Assessment Acute respiratory failure with patchy bilateral opacities, reportedly positive for COVID-19. On 2L O2 -QT interval 0.32 sec -Reportedly [facility] dept notified patient that she tested positive on 09/01 -Exposed from a friend who has since from COVID. Fever - Flu neg Hypertension Hypothyroidism Plan Plan of Care Unable to confirm test results as both [facility] dept and PCP office are closed She is nearly 14 days out, repeat COVID -19. Also check strep pneumo Ag & mycoplasma as these have been found to occur concur rently with COVID-19. The 1st dose of Azithromycin and hydroxychloraquine were given in ER. Monitor QT interval/side effects Continue the Rocephin and change azithromycin to doxy in am Cont Hydrox at 200 mg - given fever/symptoms and known exposure labs in am Continue airborne isolation for presumptive COVID-19 f/u cultures and labs D/w nursing AISHWARYA JENKINS MD Sep 14, 2019 11:27
[2019-09-14] MEDS ORDERED: ACETAMINOPHEN 325 MG TABLET. PO PRN (12:00)
[2019-09-14] MEDS: HYDROXYCHLOROQUINE 200 MG TABLET PO SCH ×2 (12:37→20:42)
--- NOTE | 2019-09-14 13:46 | PDOC ---
PROGRESS NOTES Chief Complaint Chief Complaint 1. Acute respiratory failure with patchy bilateral opacities reportedly positive for COVID-19. 2. Acute febrile illness 3. Essential Hypertension. 4. Hypothyroidism acquired History of Present Illness History of Present Illness No acute events reported overnight, case discussed with nursing staff patient in no acute distress no complaints during my visit, informed her about her negative results from Mycoplasma and influenza, reassurance provided. Vitals Vitals Vital Signs Date Time Temp Pulse Resp B/P (MAP) Pulse Ox O2 Delivery O2 Flow Rate FiO2 09/14/19 11:04 99.8 86 19 131/58 (82) 94 Nasal Cannula 3.0 99.8 Physical Exam Physical Exam GENERAL: The patient is lying in bed in no apparent distress, chronically ill appearing. Looks well HEENT: Pupils equally round. Oropharynx is pink and moist. No exudates or lesions. NECK: Supple. LUNGS: Clear to auscultation. No accessory muscle use. HEART: S1 and S2 regular. QT interval 0.32 seconds. ABDOMEN: Soft, nontender with bowel sounds present. EXTREMITIES: No gross edema or cyanosis. SKIN: Warm to touch. No signs of rash. NEUROLOGIC: Alert and answering questions appropriately. Labs LABS Laboratory Tests Test 09/13/19 18:30 09/14/19 04:55 Influenza Type A Antigen Negative (NEGATIVE) Influenza Type B Antigen Negative (NEGATIVE) White Blood Count 8.5 x10^3/uL (4.0-11.0) Red Blood Count 3.64 x10^6/uL (3.50-5.40) Hemoglobin 10.9 g/dL (12.0-15.5) Hematocrit 32.1 % (36.0-47.0) Mean Corpuscular Volume 88 fL (79-100) Mean Corpuscular Hemoglobin 30 pg (25-35) Mean Corpuscular Hemoglobin Concent 34 g/dL (31-37) Red Cell Distribution Width 13.7 % (11.5-14.5) Platelet Count 350 x10^3/uL (140-400) Neutrophils (%) (Auto) 75 % (31-73) Lymphocytes (%) (Auto) 11 % (24-48) Monocytes (%) (Auto) 13 % (0-9) Eosinophils (%) (Auto) 0 % (0-3) Basophils (%) (Auto) 0 % (0-3) Neutrophils # (Auto) 6.3 x10^3/uL (1.8-7.7) Lymphocytes # (Auto) 1.0 x10^3/uL (1.0-4.8) Monocytes # (Auto) 1.1 x10^3/uL (0.0-1.1) Eosinophils # (Auto) 0.0 x10^3/uL (0.0-0.7) Basophils # (Auto) 0.0 x10^3/uL (0.0-0.2) Sodium Level 141 mmol/L (136-145) Potassium Level 3.9 mmol/L (3.5-5.1) Chloride Level 107 mmol/L (98-107) Carbon Dioxide Level 25 mmol/L (21-32) Anion Gap 9 (6-14) Blood Urea Nitrogen 9 mg/dL (7-20) Creatinine 0.7 mg/dL (0.6-1.0) Estimated GFR (Cockcroft-Gault) 97.4 Glucose Level 99 mg/dL (70-99) Calcium Level 8.0 mg/dL (8.5-10.1) Assessment and Plan Assessmemt and Plan Problems Medical Problems: (1) COVID-19 virus infection Status: Acute (2) Pneumonia Status: Acute Comment Review of Relevant I have reviewed the following items chucky (where applicable) has been applied. Labs Laboratory Tests Test 09/13/19 10:12 09/13/19 18:30 09/14/19 04:55 White Blood Count 9.1 x10^3/uL (4.0-11.0) 8.5 x10^3/uL (4.0-11.0) Red Blood Count 4.40 x10^6/uL (3.50-5.40) 3.64 x10^6/uL (3.50-5.40) Hemoglobin 13.2 g/dL (12.0-15.5) 10.9 g/dL (12.0-15.5) Hematocrit 38.5 % (36.0-47.0) 32.1 % (36.0-47.0) Mean Corpuscular Volume 87 fL (79-100) 88 fL (79-100) Mean Corpuscular Hemoglobin 30 pg (25-35) 30 pg (25-35) Mean Corpuscular Hemoglobin Concent 34 g/dL (31-37) 34 g/dL (31-37) Red Cell Distribution Width 13.6 % (11.5-14.5) 13.7 % (11.5-14.5) Platelet Count 390 x10^3/uL (140-400) 350 x10^3/uL (140-400) Neutrophils (%) (Auto) 80 % (31-73) 75 % (31-73) Lymphocytes (%) (Auto) 11 % (24-48) 11 % (24-48) Monocytes (%) (Auto) 9 % (0-9) 13 % (0-9) Eosinophils (%) (Auto) 0 % (0-3) 0 % (0-3) Basophils (%) (Auto) 0 % (0-3) 0 % (0-3) Neutrophils # (Auto) 7.2 x10^3/uL (1.8-7.7) 6.3 x10^3/uL (1.8-7.7) Lymphocytes # (Auto) 1.0 x10^3/uL (1.0-4.8) 1.0 x10^3/uL (1.0-4.8) Monocytes # (Auto) 0.8 x10^3/uL (0.0-1.1) 1.1 x10^3/uL (0.0-1.1) Eosinophils # (Auto) 0.0 x10^3/uL (0.0-0.7) 0.0 x10^3/uL (0.0-0.7) Basophils # (Auto) 0.0 x10^3/uL (0.0-0.2) 0.0 x10^3/uL (0.0-0.2) Prothrombin Time 12.8 SEC (11.7-14.0) Prothromb Time International Ratio 1.0 (0.8-1.1) Activated Partial Thromboplast Time 32 SEC (24-38) Sodium Level 139 mmol/L (136-145) 141 mmol/L (136-145) Potassium Level 3.7 mmol/L (3.5-5.1) 3.9 mmol/L (3.5-5.1) Chloride Level 102 mmol/L (98-107) 107 mmol/L (98-107) Carbon Dioxide Level 29 mmol/L (21-32) 25 mmol/L (21-32) Anion Gap 8 (6-14) 9 (6-14) Blood Urea Nitrogen 12 mg/dL (7-20) 9 mg/dL (7-20) Creatinine 0.9 mg/dL (0.6-1.0) 0.7 mg/dL (0.6-1.0) Estimated GFR (Cockcroft-Gault) 72.9 97.4 BUN/Creatinine Ratio 13 (6-20) Glucose Level 122 mg/dL (70-99) 99 mg/dL (70-99) Lactic Acid Level 1.6 mmol/L (0.4-2.0) Calcium Level 9.0 mg/dL (8.5-10.1) 8.0 mg/dL (8.5-10.1) Magnesium Level 2.3 mg/dL (1.8-2.4) Total Bilirubin 0.5 mg/dL (0.2-1.0) Aspartate Amino Transf (AST/SGOT) 61 U/L (15-37) Alanine Aminotransferase (ALT/SGPT) 51 U/L (14-59) Alkaline Phosphatase 81 U/L (46-116) Troponin I Quantitative < 0.017 ng/mL (0.000-0.055) UZ-Gib-Y-Type Natriuretic Peptide 272 pg/mL (0-449) Total Protein 6.5 g/dL (6.4-8.2) Albumin 2.7 g/dL (3.4-5.0) Albumin/Globulin Ratio 0.7 (1.0-1.7) Mycoplasma Serology (LAB) Negative (NEGATIVE) Influenza Type A Antigen Negative (NEGATIVE) Influenza Type B Antigen Negative (NEGATIVE) Laboratory Tests Test 09/13/19 18:30 09/14/19 04:55 Influenza Type A Antigen Negative (NEGATIVE) Influenza Type B Antigen Negative (NEGATIVE) White Blood Count 8.5 x10^3/uL (4.0-11.0) Red Blood Count 3.64 x10^6/uL (3.50-5.40) Hemoglobin 10.9 g/dL (12.0-15.5) Hematocrit 32.1 % (36.0-47.0) Mean Corpuscular Volume 88 fL (79-100) Mean Corpuscular Hemoglobin 30 pg (25-35) Mean Corpuscular Hemoglobin Concent 34 g/dL (31-37) Red Cell Distribution Width 13.7 % (11.5-14.5) Platelet Count 350 x10^3/uL (140-400) Neutrophils (%) (Auto) 75 % (31-73) Lymphocytes (%) (Auto) 11 % (24-48) Monocytes (%) (Auto) 13 % (0-9) Eosinophils (%) (Auto) 0 % (0-3) Basophils (%) (Auto) 0 % (0-3) Neutrophils # (Auto) 6.3 x10^3/uL (1.8-7.7) Lymphocytes # (Auto) 1.0 x10^3/uL (1.0-4.8) Monocytes # (Auto) 1.1 x10^3/uL (0.0-1.1) Eosinophils # (Auto) 0.0 x10^3/uL (0.0-0.7) Basophils # (Auto) 0.0 x10^3/uL (0.0-0.2) Sodium Level 141 mmol/L (136-145) Potassium Level 3.9 mmol/L (3.5-5.1) Chloride Level 107 mmol/L (98-107) Carbon Dioxide Level 25 mmol/L (21-32) Anion Gap 9 (6-14) Blood Urea Nitrogen 9 mg/dL (7-20) Creatinine 0.7 mg/dL (0.6-1.0) Estimated GFR (Cockcroft-Gault) 97.4 Glucose Level 99 mg/dL (70-99) Calcium Level 8.0 mg/dL (8.5-10.1) Microbiology 09/13/19 Blood Culture - Preliminary, Resulted NO GROWTH AFTER 1 DAY Medications Current Medications Ceftriaxone Sodium (Rocephin) 1 gm 1X ONCE IVP Last administered on 09/13/19at 11:12; Start 09/13/19 at 10:45; Stop 09/13/19 at 10:49; Status DC Azithromycin 250 ml @ 250 mls/hr 1X ONCE IV Last administered on 09/13/19at 11:13; Start 09/13/19 at 10:45; Stop 09/13/19 at 11:44; Status DC Ondansetron HCl (Zofran) 4 mg PRN Q8HRS PRN IV NAUSEA/VOMITING; Start 09/13/19 at 11:30; Stop 09/14/19 at 11:29; Status DC Sodium Chloride 1,000 ml @ 75 mls/hr [id number] IV Last administered on 09/13/19at 15:55; Start 09/13/19 at 11:18; Stop 09/14/19 at 11:17; Status DC Hydroxychloroquine Sulfate (Plaquenil (Med Program)) 400 mg BID PO Last administered on 09/13/19at 21:35; Start 09/13/19 at 12:00; Stop 09/13/19 at 21:01; Status DC Amlodipine Besylate (Norvasc) 5 mg DAILY PO Last administered on 09/14/19at 08:47; Start 09/14/19 at 09:00 Aspirin (Aspirin Chewable) 81 mg DAILY PO Last administered on 09/14/19at 08:48; Start 09/14/19 at 09:00 Famotidine (Pepcid) 20 mg DAILY PO Last administered on 09/14/19at 08:48; Start 09/14/19 at 09:00 Levothyroxine Sodium (Synthroid) 75 mcg DAILY06 PO ; Start 09/14/19 at 06:00; Stop 09/14/19 at 03:12; Status DC Losartan Potassium (Cozaar) 100 mg DAILY PO Last administered on 09/14/19at 08:47; Start 09/14/19 at 09:00 Ceftriaxone Sodium (Rocephin) 1 gm Q24H IVP Last administered on 09/14/19at 08:47; Start 09/14/19 at 10:00 Azithromycin (Zithromax) 250 mg DAILY PO Last administered on 09/14/19at 08:48; Start 09/14/19 at 09:00; Stop 09/14/19 at 11:26; Status DC Ascorbic Acid (Vitamin C) 500 mg BID PO Last administered on 09/14/19at 08:47; Start 09/13/19 at 21:00 Levothyroxine Sodium (Synthroid) 75 mcg DAILY06 PO Last administered on 09/14/19at 03:16; Start 09/14/19 at 03:30 Hydroxychloroquine Sulfate (Plaquenil) 200 mg BID PO Last administered on 09/14/19at 12:37; Start 09/14/19 at 11:30; Stop 09/17/19 at 21:01 Doxycycline Hyclate (Vibra-Tab) 100 mg BID PO ; Start 09/15/19 at 09:00 Acetaminophen (Tylenol) 650 mg PRN Q6HRS PRN PO FEVER Last administered on 09/14/19at 12:37; Start 09/14/19 at 12:00 Lactobacillus Rhamnosus (Culturelle) 1 cap BID PO ; Start 09/14/19 at 21:00 Active Scripts Active Reported Vitamin C (Ascorbic Acid) 500 Mg Tab.chew 500 Mg PO BID Benicar (Olmesartan Medoxomil) 40 Mg Tablet 1 Tab PO DAILY 30 Days Famotidine 20 Mg Tablet 20 Mg PO BID Aspirin 81 Mg Tab.chew 81 Mg PO DAILY Levothyroxine Sodium 75 Mcg Tablet 1 Tab PO DAILY Amlodipine Besylate 10 Mg Tablet 0.5 Tab PO DAILY Vitals/I & O Vital Sign - Last 24 Hours 09/13/19 09/13/19 09/13/19 09/13/19 15:00 15:17 19:00 20:00 Temp 100.8 101.8 100.8 101.8 Pulse 93 96 Resp 20 B/P (MAP) 133/60 (84) 141/65 (90) Pulse Ox 98 96 O2 Delivery Nasal Cannula Nasal Cannula Nasal Cannula Nasal Cannula O2 Flow Rate 3.0 2.0 3.0 09/13/19 09/14/19 09/14/19 09/14/19 23:04 03:33 07:00 08:00 Temp 100.5 100.6 100.3 100.5 100.6 100.3 Pulse 91 85 78 Resp 18 20 17 B/P (MAP) 110/77 (88) 112/57 (75) 121/57 (78) Pulse Ox 97 91 95 O2 Delivery Nasal Cannula Nasal Cannula Nasal Cannula Nasal Cannula O2 Flow Rate 3.0 3.0 09/14/19 09/14/19 09/14/19 08:47 08:47 11:04 Temp 99.8 99.8 Pulse 78 78 86 Resp 19 B/P (MAP) 121/57 121/57 131/58 (82) Pulse Ox 94 O2 Delivery Nasal Cannula O2 Flow Rate 3.0 Intake and Output 09/13/19 09/13/19 09/14/19 15:00 23:00 07:00 Intake Total 250 ml 600 ml Output Total 0 ml Balance 250 ml 600 ml FERNANDEZ CANNON MD Sep 14, 2019 13:46
[2019-09-14 14:58] VITALS: BP 117/56
--- NOTE | 2019-09-14 17:33 | PDOC ---
PULMONARY PROGRESS NOTES Subjective alert no soa Vitals Vital Signs Date Time Temp Pulse Resp B/P (MAP) Pulse Ox O2 Delivery O2 Flow Rate FiO2 09/14/19 14:58 98.6 83 19 117/56 (76) 98 Nasal Cannula 3.0 98.6 Comments visual exam done via telemedicine no soa no JVD no rash no leg edema Labs Laboratory Tests Test 09/13/19 10:12 09/13/19 18:30 09/14/19 04:55 White Blood Count 9.1 x10^3/uL (4.0-11.0) 8.5 x10^3/uL (4.0-11.0) Red Blood Count 4.40 x10^6/uL (3.50-5.40) 3.64 x10^6/uL (3.50-5.40) Hemoglobin 13.2 g/dL (12.0-15.5) 10.9 g/dL (12.0-15.5) Hematocrit 38.5 % (36.0-47.0) 32.1 % (36.0-47.0) Mean Corpuscular Volume 87 fL (79-100) 88 fL (79-100) Mean Corpuscular Hemoglobin 30 pg (25-35) 30 pg (25-35) Mean Corpuscular Hemoglobin Concent 34 g/dL (31-37) 34 g/dL (31-37) Red Cell Distribution Width 13.6 % (11.5-14.5) 13.7 % (11.5-14.5) Platelet Count 390 x10^3/uL (140-400) 350 x10^3/uL (140-400) Neutrophils (%) (Auto) 80 % (31-73) 75 % (31-73) Lymphocytes (%) (Auto) 11 % (24-48) 11 % (24-48) Monocytes (%) (Auto) 9 % (0-9) 13 % (0-9) Eosinophils (%) (Auto) 0 % (0-3) 0 % (0-3) Basophils (%) (Auto) 0 % (0-3) 0 % (0-3) Neutrophils # (Auto) 7.2 x10^3/uL (1.8-7.7) 6.3 x10^3/uL (1.8-7.7) Lymphocytes # (Auto) 1.0 x10^3/uL (1.0-4.8) 1.0 x10^3/uL (1.0-4.8) Monocytes # (Auto) 0.8 x10^3/uL (0.0-1.1) 1.1 x10^3/uL (0.0-1.1) Eosinophils # (Auto) 0.0 x10^3/uL (0.0-0.7) 0.0 x10^3/uL (0.0-0.7) Basophils # (Auto) 0.0 x10^3/uL (0.0-0.2) 0.0 x10^3/uL (0.0-0.2) Prothrombin Time 12.8 SEC (11.7-14.0) Prothromb Time International Ratio 1.0 (0.8-1.1) Activated Partial Thromboplast Time 32 SEC (24-38) Sodium Level 139 mmol/L (136-145) 141 mmol/L (136-145) Potassium Level 3.7 mmol/L (3.5-5.1) 3.9 mmol/L (3.5-5.1) Chloride Level 102 mmol/L (98-107) 107 mmol/L (98-107) Carbon Dioxide Level 29 mmol/L (21-32) 25 mmol/L (21-32) Anion Gap 8 (6-14) 9 (6-14) Blood Urea Nitrogen 12 mg/dL (7-20) 9 mg/dL (7-20) Creatinine 0.9 mg/dL (0.6-1.0) 0.7 mg/dL (0.6-1.0) Estimated GFR (Cockcroft-Gault) 72.9 97.4 BUN/Creatinine Ratio 13 (6-20) Glucose Level 122 mg/dL (70-99) 99 mg/dL (70-99) Lactic Acid Level 1.6 mmol/L (0.4-2.0) Calcium Level 9.0 mg/dL (8.5-10.1) 8.0 mg/dL (8.5-10.1) Magnesium Level 2.3 mg/dL (1.8-2.4) Total Bilirubin 0.5 mg/dL (0.2-1.0) Aspartate Amino Transf (AST/SGOT) 61 U/L (15-37) Alanine Aminotransferase (ALT/SGPT) 51 U/L (14-59) Alkaline Phosphatase 81 U/L (46-116) Troponin I Quantitative < 0.017 ng/mL (0.000-0.055) AB-Dsr-B-Type Natriuretic Peptide 272 pg/mL (0-449) Total Protein 6.5 g/dL (6.4-8.2) Albumin 2.7 g/dL (3.4-5.0) Albumin/Globulin Ratio 0.7 (1.0-1.7) Mycoplasma Serology (LAB) Negative (NEGATIVE) Influenza Type A Antigen Negative (NEGATIVE) Influenza Type B Antigen Negative (NEGATIVE) Laboratory Tests Test 09/13/19 18:30 09/14/19 04:55 Influenza Type A Antigen Negative (NEGATIVE) Influenza Type B Antigen Negative (NEGATIVE) White Blood Count 8.5 x10^3/uL (4.0-11.0) Red Blood Count 3.64 x10^6/uL (3.50-5.40) Hemoglobin 10.9 g/dL (12.0-15.5) Hematocrit 32.1 % (36.0-47.0) Mean Corpuscular Volume 88 fL (79-100) Mean Corpuscular Hemoglobin 30 pg (25-35) Mean Corpuscular Hemoglobin Concent 34 g/dL (31-37) Red Cell Distribution Width 13.7 % (11.5-14.5) Platelet Count 350 x10^3/uL (140-400) Neutrophils (%) (Auto) 75 % (31-73) Lymphocytes (%) (Auto) 11 % (24-48) Monocytes (%) (Auto) 13 % (0-9) Eosinophils (%) (Auto) 0 % (0-3) Basophils (%) (Auto) 0 % (0-3) Neutrophils # (Auto) 6.3 x10^3/uL (1.8-7.7) Lymphocytes # (Auto) 1.0 x10^3/uL (1.0-4.8) Monocytes # (Auto) 1.1 x10^3/uL (0.0-1.1) Eosinophils # (Auto) 0.0 x10^3/uL (0.0-0.7) Basophils # (Auto) 0.0 x10^3/uL (0.0-0.2) Sodium Level 141 mmol/L (136-145) Potassium Level 3.9 mmol/L (3.5-5.1) Chloride Level 107 mmol/L (98-107) Carbon Dioxide Level 25 mmol/L (21-32) Anion Gap 9 (6-14) Blood Urea Nitrogen 9 mg/dL (7-20) Creatinine 0.7 mg/dL (0.6-1.0) Estimated GFR (Cockcroft-Gault) 97.4 Glucose Level 99 mg/dL (70-99) Calcium Level 8.0 mg/dL (8.5-10.1) Medications Active Scripts Medications Dose Route/Sig Max Daily Dose Days Date Category Vitamin C (Ascorbic Acid) 500 Mg Tab.chew 500 Mg PO BID 09/13/19 Reported Benicar (Olmesartan Medoxomil) 40 Mg Tablet 1 Tab PO DAILY 30 09/13/19 Reported Famotidine 20 Mg Tablet 20 Mg PO BID 09/13/19 Reported Aspirin 81 Mg Tab.chew 81 Mg PO DAILY 11/03/15 Reported Levothyroxine Sodium 75 Mcg Tablet 1 Tab PO DAILY 02/24/14 Reported Amlodipine Besylate 10 Mg Tablet 0.5 Tab PO DAILY 02/24/14 Reported Impression . IMPRESSION: 1. COVID-19 pneumonia. 2. Acute hypoxic respiratory failure secondary to COVID-19 pneumonia. 3. Abnormal chest x-ray with bilateral infiltrates suggestive of COVID-19 pneumonia. Cannot exclude the possibility of superimposed bacterial pneumonia. 4. Nonsmoker. Plan . 1. We will continue with present oxygen, keep saturation 94% and above. 2. Continue antibiotic, Rocephin and Doxy, hydroxychloroquine has been initiated and the patient will do 5-day course. 3. clinically better 4. We will follow chest x-ray p.r.n. 5. We will also follow for her stability on oxygenation. 6. Discussed with RN she could be discharged home with and Oxygen ANDRZEJ MOORE MD Sep 14, 2019 17:33
[2019-09-14 19:00] VITALS: BP 142/61
[2019-09-14] MEDS: LACTOBACILLUS RHAMNOSUS GG 1 CAPSULE. PO SCH (20:42)
[2019-09-14 23:00] VITALS: BP 132/60
[2019-09-15 03:00] VITALS: BP 135/63
[2019-09-15 04:24] LABS: BASO % 1 % (0-3); EOS # 0.2 x10^3/uL (0.0-0.7); EOS % 2 % (0-3); HEMATOCRIT 34.2 % (36.0-47.0); HEMOGLOBIN 11.6 g/dL (12.0-15.5); LYMPH # 1.1 x10^3/uL (1.0-4.8); LYMPH % 15 % (24-48); MEAN CORPUSCULAR HEMOGLOBIN 30 pg (25-35); MEAN CORPUSCULAR HGB CONC 34 g/dL (31-37); MEAN CORPUSCULAR VOLUME 89 fL (79-100); MONO # 0.9 x10^3/uL (0.0-1.1); MONO % 13 % (0-9); NEUT % 70 % (31-73); PLATELET COUNT 426 x10^3/uL (140-400); RED BLOOD COUNT 3.85 x10^6/uL (3.50-5.40); RED CELL DISTRIBUTION WIDTH 13.8 % (11.5-14.5); WHITE BLOOD COUNT 7.2 x10^3/uL (4.0-11.0)
[2019-09-15 04:34] LABS: CALCIUM 8.1 mg/dL (8.5-10.1); CREATININE 0.7 mg/dL (0.6-1.0); GFR 97.4; POTASSIUM 3.7 mmol/L (3.5-5.1)
[2019-09-15] MEDS: LEVOTHYROXINE 75 MCG TABLET PO SCH (06:10)
[2019-09-15 07:00] VITALS: BP 114/55
[2019-09-15] MEDS: LOSARTAN POTASSIUM 50 MG TABLET. PO SCH ×2 (09:00→09:34)
--- NOTE | 2019-09-15 09:08 | PDOC ---
PULMONARY PROGRESS NOTES Subjective alert no soa Vitals Vital Signs Date Time Temp Pulse Resp B/P (MAP) Pulse Ox O2 Delivery O2 Flow Rate FiO2 09/15/19 07:00 99.1 84 17 114/55 (74) 94 Nasal Cannula 3.0 99.1 Comments visual exam done via telemedicine no soa no JVD no rash no leg edema Labs Laboratory Tests Test 09/13/19 10:12 09/13/19 18:30 09/14/19 04:55 09/15/19 03:50 White Blood Count 9.1 x10^3/uL (4.0-11.0) 8.5 x10^3/uL (4.0-11.0) 7.2 x10^3/uL (4.0-11.0) Red Blood Count 4.40 x10^6/uL (3.50-5.40) 3.64 x10^6/uL (3.50-5.40) 3.85 x10^6/uL (3.50-5.40) Hemoglobin 13.2 g/dL (12.0-15.5) 10.9 g/dL (12.0-15.5) 11.6 g/dL (12.0-15.5) Hematocrit 38.5 % (36.0-47.0) 32.1 % (36.0-47.0) 34.2 % (36.0-47.0) Mean Corpuscular Volume 87 fL (79-100) 88 fL (79-100) 89 fL (79-100) Mean Corpuscular Hemoglobin 30 pg (25-35) 30 pg (25-35) 30 pg (25-35) Mean Corpuscular Hemoglobin Concent 34 g/dL (31-37) 34 g/dL (31-37) 34 g/dL (31-37) Red Cell Distribution Width 13.6 % (11.5-14.5) 13.7 % (11.5-14.5) 13.8 % (11.5-14.5) Platelet Count 390 x10^3/uL (140-400) 350 x10^3/uL (140-400) 426 x10^3/uL (140-400) Neutrophils (%) (Auto) 80 % (31-73) 75 % (31-73) 70 % (31-73) Lymphocytes (%) (Auto) 11 % (24-48) 11 % (24-48) 15 % (24-48) Monocytes (%) (Auto) 9 % (0-9) 13 % (0-9) 13 % (0-9) Eosinophils (%) (Auto) 0 % (0-3) 0 % (0-3) 2 % (0-3) Basophils (%) (Auto) 0 % (0-3) 0 % (0-3) 1 % (0-3) Neutrophils # (Auto) 7.2 x10^3/uL (1.8-7.7) 6.3 x10^3/uL (1.8-7.7) 5.0 x10^3/uL (1.8-7.7) Lymphocytes # (Auto) 1.0 x10^3/uL (1.0-4.8) 1.0 x10^3/uL (1.0-4.8) 1.1 x10^3/uL (1.0-4.8) Monocytes # (Auto) 0.8 x10^3/uL (0.0-1.1) 1.1 x10^3/uL (0.0-1.1) 0.9 x10^3/uL (0.0-1.1) Eosinophils # (Auto) 0.0 x10^3/uL (0.0-0.7) 0.0 x10^3/uL (0.0-0.7) 0.2 x10^3/uL (0.0-0.7) Basophils # (Auto) 0.0 x10^3/uL (0.0-0.2) 0.0 x10^3/uL (0.0-0.2) 0.0 x10^3/uL (0.0-0.2) Prothrombin Time 12.8 SEC (11.7-14.0) Prothromb Time International Ratio 1.0 (0.8-1.1) Activated Partial Thromboplast Time 32 SEC (24-38) Sodium Level 139 mmol/L (136-145) 141 mmol/L (136-145) 141 mmol/L (136-145) Potassium Level 3.7 mmol/L (3.5-5.1) 3.9 mmol/L (3.5-5.1) 3.7 mmol/L (3.5-5.1) Chloride Level 102 mmol/L (98-107) 107 mmol/L (98-107) 107 mmol/L (98-107) Carbon Dioxide Level 29 mmol/L (21-32) 25 mmol/L (21-32) 28 mmol/L (21-32) Anion Gap 8 (6-14) 9 (6-14) 6 (6-14) Blood Urea Nitrogen 12 mg/dL (7-20) 9 mg/dL (7-20) 9 mg/dL (7-20) Creatinine 0.9 mg/dL (0.6-1.0) 0.7 mg/dL (0.6-1.0) 0.7 mg/dL (0.6-1.0) Estimated GFR (Cockcroft-Gault) 72.9 97.4 97.4 BUN/Creatinine Ratio 13 (6-20) Glucose Level 122 mg/dL (70-99) 99 mg/dL (70-99) 94 mg/dL (70-99) Lactic Acid Level 1.6 mmol/L (0.4-2.0) Calcium Level 9.0 mg/dL (8.5-10.1) 8.0 mg/dL (8.5-10.1) 8.1 mg/dL (8.5-10.1) Magnesium Level 2.3 mg/dL (1.8-2.4) Total Bilirubin 0.5 mg/dL (0.2-1.0) Aspartate Amino Transf (AST/SGOT) 61 U/L (15-37) Alanine Aminotransferase (ALT/SGPT) 51 U/L (14-59) Alkaline Phosphatase 81 U/L (46-116) Troponin I Quantitative < 0.017 ng/mL (0.000-0.055) WM-Dfm-Y-Type Natriuretic Peptide 272 pg/mL (0-449) Total Protein 6.5 g/dL (6.4-8.2) Albumin 2.7 g/dL (3.4-5.0) Albumin/Globulin Ratio 0.7 (1.0-1.7) Mycoplasma Serology (LAB) Negative (NEGATIVE) Influenza Type A Antigen Negative (NEGATIVE) Influenza Type B Antigen Negative (NEGATIVE) Laboratory Tests Test 09/15/19 03:50 White Blood Count 7.2 x10^3/uL (4.0-11.0) Red Blood Count 3.85 x10^6/uL (3.50-5.40) Hemoglobin 11.6 g/dL (12.0-15.5) Hematocrit 34.2 % (36.0-47.0) Mean Corpuscular Volume 89 fL (79-100) Mean Corpuscular Hemoglobin 30 pg (25-35) Mean Corpuscular Hemoglobin Concent 34 g/dL (31-37) Red Cell Distribution Width 13.8 % (11.5-14.5) Platelet Count 426 x10^3/uL (140-400) Neutrophils (%) (Auto) 70 % (31-73) Lymphocytes (%) (Auto) 15 % (24-48) Monocytes (%) (Auto) 13 % (0-9) Eosinophils (%) (Auto) 2 % (0-3) Basophils (%) (Auto) 1 % (0-3) Neutrophils # (Auto) 5.0 x10^3/uL (1.8-7.7) Lymphocytes # (Auto) 1.1 x10^3/uL (1.0-4.8) Monocytes # (Auto) 0.9 x10^3/uL (0.0-1.1) Eosinophils # (Auto) 0.2 x10^3/uL (0.0-0.7) Basophils # (Auto) 0.0 x10^3/uL (0.0-0.2) Sodium Level 141 mmol/L (136-145) Potassium Level 3.7 mmol/L (3.5-5.1) Chloride Level 107 mmol/L (98-107) Carbon Dioxide Level 28 mmol/L (21-32) Anion Gap 6 (6-14) Blood Urea Nitrogen 9 mg/dL (7-20) Creatinine 0.7 mg/dL (0.6-1.0) Estimated GFR (Cockcroft-Gault) 97.4 Glucose Level 94 mg/dL (70-99) Calcium Level 8.1 mg/dL (8.5-10.1) Medications Active Scripts Medications Dose Route/Sig Max Daily Dose Days Date Category Vitamin C (Ascorbic Acid) 500 Mg Tab.chew 500 Mg PO BID 09/13/19 Reported Benicar (Olmesartan Medoxomil) 40 Mg Tablet 1 Tab PO DAILY 30 09/13/19 Reported Famotidine 20 Mg Tablet 20 Mg PO BID 09/13/19 Reported Aspirin 81 Mg Tab.chew 81 Mg PO DAILY 11/03/15 Reported Levothyroxine Sodium 75 Mcg Tablet 1 Tab PO DAILY 02/24/14 Reported Amlodipine Besylate 10 Mg Tablet 0.5 Tab PO DAILY 02/24/14 Reported Impression . IMPRESSION: 1. COVID-19 pneumonia. 2. Acute hypoxic respiratory failure secondary to COVID-19 pneumonia. 3. Abnormal chest x-ray with bilateral infiltrates suggestive of COVID-19 pneumonia. Cannot exclude the possibility of superimposed bacterial pneumonia. 4. Nonsmoker. Plan . 1. We will continue with present oxygen, keep saturation 94% and above. 2. Continue antibiotic, Rocephin and Doxy, hydroxychloroquine has been initiated and the patient will do 5-day course. 3. clinically better 4. We will follow chest x-ray p.r.n. 5. We will also follow for her stability on oxygenation. 6. Discussed with RN she could be discharged home with and Oxygen ANDRZEJ MOORE MD Sep 15, 2019 09:08
[2019-09-15] MEDS: ASPIRIN CHEWABLE 81 MG TABLET. PO SCH (09:33)
[2019-09-15] MEDS: ASCORBIC ACID 500 MG TABLET PO SCH ×2 (09:33→20:12)
[2019-09-15] MEDS: DOXYCYCLINE HYCLATE 100 MG TABLET PO SCH ×2 (09:33→20:12)
[2019-09-15] MEDS: FAMOTIDINE 20 MG TABLET. PO SCH (09:33)
[2019-09-15] MEDS: LACTOBACILLUS RHAMNOSUS GG 1 CAPSULE. PO SCH ×2 (09:33→20:12)
[2019-09-15] MEDS: amLODIPine BESYLATE 5 MG TABLET PO SCH (09:34)
[2019-09-15] MEDS: cefTRIAXone IV Push 1 GM VIAL. IVP SCH (09:35)
[2019-09-15] MEDS: HYDROXYCHLOROQUINE 200 MG TABLET PO SCH ×2 (09:35→20:12)
[2019-09-15 10:38] VITALS: BP 136/63
--- NOTE | 2019-09-15 11:26 | PDOC ---
Infectious Disease Note Subjective Subjective Feeling some better. Had a little bit of an appetite this am Some loose stool Fever better. No gross SOA/rash ROS ROS o/w neg Vital Sign Vital Signs Vital Signs Date Time Temp Pulse Resp B/P (MAP) Pulse Ox O2 Delivery O2 Flow Rate FiO2 09/15/19 10:38 98.2 87 17 136/63 (87) 100 Nasal Cannula 3.0 98.2 Physical Exam PHYSICAL EXAM GENERAL: The patient is lying in chair in no apparent distress, Looks well HEENT: Pupils equally round. Oropharynx is pink and moist. No exudates or lesions. NECK: Supple. LUNGS: Clear to auscultation. No accessory muscle use. HEART: S1 and S2 regular. QT interval 0.32 seconds. ABDOMEN: Soft, nontender with bowel sounds present. EXTREMITIES: No gross edema or cyanosis. SKIN: Warm to touch. No signs of rash. NEUROLOGIC: Alert and answering questions appropriately. Labs Lab Laboratory Tests Test 09/15/19 03:50 White Blood Count 7.2 x10^3/uL (4.0-11.0) Red Blood Count 3.85 x10^6/uL (3.50-5.40) Hemoglobin 11.6 g/dL (12.0-15.5) Hematocrit 34.2 % (36.0-47.0) Mean Corpuscular Volume 89 fL (79-100) Mean Corpuscular Hemoglobin 30 pg (25-35) Mean Corpuscular Hemoglobin Concent 34 g/dL (31-37) Red Cell Distribution Width 13.8 % (11.5-14.5) Platelet Count 426 x10^3/uL (140-400) Neutrophils (%) (Auto) 70 % (31-73) Lymphocytes (%) (Auto) 15 % (24-48) Monocytes (%) (Auto) 13 % (0-9) Eosinophils (%) (Auto) 2 % (0-3) Basophils (%) (Auto) 1 % (0-3) Neutrophils # (Auto) 5.0 x10^3/uL (1.8-7.7) Lymphocytes # (Auto) 1.1 x10^3/uL (1.0-4.8) Monocytes # (Auto) 0.9 x10^3/uL (0.0-1.1) Eosinophils # (Auto) 0.2 x10^3/uL (0.0-0.7) Basophils # (Auto) 0.0 x10^3/uL (0.0-0.2) Sodium Level 141 mmol/L (136-145) Potassium Level 3.7 mmol/L (3.5-5.1) Chloride Level 107 mmol/L (98-107) Carbon Dioxide Level 28 mmol/L (21-32) Anion Gap 6 (6-14) Blood Urea Nitrogen 9 mg/dL (7-20) Creatinine 0.7 mg/dL (0.6-1.0) Estimated GFR (Cockcroft-Gault) 97.4 Glucose Level 94 mg/dL (70-99) Calcium Level 8.1 mg/dL (8.5-10.1) Micro Microbiology 09/13/19 Blood Culture - Preliminary, Resulted NO GROWTH AFTER 1 DAY Objective Assessment Acute respiratory failure with patchy bilateral opacities, reportedly positive f or COVID-19. On 2L O2 -QT interval 0.32 sec -Reportedly [facility] dept notified patient that she tested positive on 09/01 -Exposed from a friend who has since from COVID. Fever - Flu neg COVID + Hypertension Hypothyroidism Plan Plan of Care The 1st dose of Azithromycin and hydroxychloraquine were given in ER. Monitor QT interval/side effects Discontinue the Rocephin today and cont doxy for now Cont Hydrox at 200 mg - given fever/symptoms and known exposure labs in am f/u cultures and labs D/w nursing AISHWARYA JENKINS MD Sep 15, 2019 11:26
--- NOTE | 2019-09-15 11:37 | NUR ---
Pt restest for COVID and remains + requiring continued airborne/contact precautions using a face shield.
--- NOTE | 2019-09-15 12:12 | PDOC ---
PROGRESS NOTES Chief Complaint Chief Complaint 1. Acute respiratory failure with patchy bilateral opacities reportedly positive for COVID-19. 2. Acute febrile illness 3. Essential Hypertension. 4. Hypothyroidism acquired Plan: continue with current care Patient refers having problems caring for herself but does not want to be in a SNF I asked her if she has family in the area and she denies having a good support system requested CM for dischrge planning medically optimized for discharge History of Present Illness History of Present Illness No acute events reported overnight, case discussed with nursing staff patient in no acute distress no complaints during my visit, informed her about her negative results from Mycoplasma and influenza, reassurance provided. Patient quite reluctant to be discharged to a SNF nevertheless she voiced not being able to care for herself at home and lack of family support Vitals Vitals Vital Signs Date Time Temp Pulse Resp B/P (MAP) Pulse Ox O2 Delivery O2 Flow Rate FiO2 09/15/19 10:38 98.2 87 17 136/63 (87) 100 Nasal Cannula 3.0 98.2 Physical Exam Physical Exam GENERAL: The patient is lying in bed in no apparent distress, chronically ill appearing. Looks well HEENT: Pupils equally round. Oropharynx is pink and moist. No exudates or lesions. NECK: Supple. LUNGS: Clear to auscultation. No accessory muscle use. HEART: S1 and S2 regular. QT interval 0.32 seconds. ABDOMEN: Soft, nontender with bowel sounds present. EXTREMITIES: No gross edema or cyanosis. SKIN: Warm to touch. No signs of rash. NEUROLOGIC: Alert and answering questions appropriately. Labs LABS Laboratory Tests Test 09/15/19 03:50 White Blood Count 7.2 x10^3/uL (4.0-11.0) Red Blood Count 3.85 x10^6/uL (3.50-5.40) Hemoglobin 11.6 g/dL (12.0-15.5) Hematocrit 34.2 % (36.0-47.0) Mean Corpuscular Volume 89 fL (79-100) Mean Corpuscular Hemoglobin 30 pg (25-35) Mean Corpuscular Hemoglobin Concent 34 g/dL (31-37) Red Cell Distribution Width 13.8 % (11.5-14.5) Platelet Count 426 x10^3/uL (140-400) Neutrophils (%) (Auto) 70 % (31-73) Lymphocytes (%) (Auto) 15 % (24-48) Monocytes (%) (Auto) 13 % (0-9) Eosinophils (%) (Auto) 2 % (0-3) Basophils (%) (Auto) 1 % (0-3) Neutrophils # (Auto) 5.0 x10^3/uL (1.8-7.7) Lymphocytes # (Auto) 1.1 x10^3/uL (1.0-4.8) Monocytes # (Auto) 0.9 x10^3/uL (0.0-1.1) Eosinophils # (Auto) 0.2 x10^3/uL (0.0-0.7) Basophils # (Auto) 0.0 x10^3/uL (0.0-0.2) Sodium Level 141 mmol/L (136-145) Potassium Level 3.7 mmol/L (3.5-5.1) Chloride Level 107 mmol/L (98-107) Carbon Dioxide Level 28 mmol/L (21-32) Anion Gap 6 (6-14) Blood Urea Nitrogen 9 mg/dL (7-20) Creatinine 0.7 mg/dL (0.6-1.0) Estimated GFR (Cockcroft-Gault) 97.4 Glucose Level 94 mg/dL (70-99) Calcium Level 8.1 mg/dL (8.5-10.1) Assessment and Plan Assessmemt and Plan Problems Medical Problems: (1) COVID-19 virus infection Status: Acute (2) Pneumonia Status: Acute Comment Review of Relevant I have reviewed the following items chucky (where applicable) has been applied. Labs Laboratory Tests Test 09/13/19 18:30 09/14/19 04:55 09/15/19 03:50 Coronavirus (COVID-19)(PCR) See separate report Influenza Type A Antigen Negative (NEGATIVE) Influenza Type B Antigen Negative (NEGATIVE) White Blood Count 8.5 x10^3/uL (4.0-11.0) 7.2 x10^3/uL (4.0-11.0) Red Blood Count 3.64 x10^6/uL (3.50-5.40) 3.85 x10^6/uL (3.50-5.40) Hemoglobin 10.9 g/dL (12.0-15.5) 11.6 g/dL (12.0-15.5) Hematocrit 32.1 % (36.0-47.0) 34.2 % (36.0-47.0) Mean Corpuscular Volume 88 fL (79-100) 89 fL (79-100) Mean Corpuscular Hemoglobin 30 pg (25-35) 30 pg (25-35) Mean Corpuscular Hemoglobin Concent 34 g/dL (31-37) 34 g/dL (31-37) Red Cell Distribution Width 13.7 % (11.5-14.5) 13.8 % (11.5-14.5) Platelet Count 350 x10^3/uL (140-400) 426 x10^3/uL (140-400) Neutrophils (%) (Auto) 75 % (31-73) 70 % (31-73) Lymphocytes (%) (Auto) 11 % (24-48) 15 % (24-48) Monocytes (%) (Auto) 13 % (0-9) 13 % (0-9) Eosinophils (%) (Auto) 0 % (0-3) 2 % (0-3) Basophils (%) (Auto) 0 % (0-3) 1 % (0-3) Neutrophils # (Auto) 6.3 x10^3/uL (1.8-7.7) 5.0 x10^3/uL (1.8-7.7) Lymphocytes # (Auto) 1.0 x10^3/uL (1.0-4.8) 1.1 x10^3/uL (1.0-4.8) Monocytes # (Auto) 1.1 x10^3/uL (0.0-1.1) 0.9 x10^3/uL (0.0-1.1) Eosinophils # (Auto) 0.0 x10^3/uL (0.0-0.7) 0.2 x10^3/uL (0.0-0.7) Basophils # (Auto) 0.0 x10^3/uL (0.0-0.2) 0.0 x10^3/uL (0.0-0.2) Sodium Level 141 mmol/L (136-145) 141 mmol/L (136-145) Potassium Level 3.9 mmol/L (3.5-5.1) 3.7 mmol/L (3.5-5.1) Chloride Level 107 mmol/L (98-107) 107 mmol/L (98-107) Carbon Dioxide Level 25 mmol/L (21-32) 28 mmol/L (21-32) Anion Gap 9 (6-14) 6 (6-14) Blood Urea Nitrogen 9 mg/dL (7-20) 9 mg/dL (7-20) Creatinine 0.7 mg/dL (0.6-1.0) 0.7 mg/dL (0.6-1.0) Estimated GFR (Cockcroft-Gault) 97.4 97.4 Glucose Level 99 mg/dL (70-99) 94 mg/dL (70-99) Calcium Level 8.0 mg/dL (8.5-10.1) 8.1 mg/dL (8.5-10.1) Laboratory Tests Test 09/15/19 03:50 White Blood Count 7.2 x10^3/uL (4.0-11.0) Red Blood Count 3.85 x10^6/uL (3.50-5.40) Hemoglobin 11.6 g/dL (12.0-15.5) Hematocrit 34.2 % (36.0-47.0) Mean Corpuscular Volume 89 fL (79-100) Mean Corpuscular Hemoglobin 30 pg (25-35) Mean Corpuscular Hemoglobin Concent 34 g/dL (31-37) Red Cell Distribution Width 13.8 % (11.5-14.5) Platelet Count 426 x10^3/uL (140-400) Neutrophils (%) (Auto) 70 % (31-73) Lymphocytes (%) (Auto) 15 % (24-48) Monocytes (%) (Auto) 13 % (0-9) Eosinophils (%) (Auto) 2 % (0-3) Basophils (%) (Auto) 1 % (0-3) Neutrophils # (Auto) 5.0 x10^3/uL (1.8-7.7) Lymphocytes # (Auto) 1.1 x10^3/uL (1.0-4.8) Monocytes # (Auto) 0.9 x10^3/uL (0.0-1.1) Eosinophils # (Auto) 0.2 x10^3/uL (0.0-0.7) Basophils # (Auto) 0.0 x10^3/uL (0.0-0.2) Sodium Level 141 mmol/L (136-145) Potassium Level 3.7 mmol/L (3.5-5.1) Chloride Level 107 mmol/L (98-107) Carbon Dioxide Level 28 mmol/L (21-32) Anion Gap 6 (6-14) Blood Urea Nitrogen 9 mg/dL (7-20) Creatinine 0.7 mg/dL (0.6-1.0) Estimated GFR (Cockcroft-Gault) 97.4 Glucose Level 94 mg/dL (70-99) Calcium Level 8.1 mg/dL (8.5-10.1) Microbiology 09/13/19 Blood Culture - Preliminary, Resulted NO GROWTH AFTER 2 DAYS Medications Current Medications Ceftriaxone Sodium (Rocephin) 1 gm 1X ONCE IVP Last administered on 09/13/19at 11:12; Start 09/13/19 at 10:45; Stop 09/13/19 at 10:49; Status DC Azithromycin 250 ml @ 250 mls/hr 1X ONCE IV Last administered on 09/13/19at 11:13; Start 09/13/19 at 10:45; Stop 09/13/19 at 11:44; Status DC Ondansetron HCl (Zofran) 4 mg PRN Q8HRS PRN IV NAUSEA/VOMITING; Start 09/13/19 at 11:30; Stop 09/14/19 at 11:29; Status DC Sodium Chloride 1,000 ml @ 75 mls/hr [id number] IV Last administered on 09/13/19at 15:55; Start 09/13/19 at 11:18; Stop 09/14/19 at 11:17; Status DC Hydroxychloroquine Sulfate (Plaquenil (Med Program)) 400 mg BID PO Last administered on 09/13/19at 21:35; Start 09/13/19 at 12:00; Stop 09/13/19 at 21:01; Status DC Amlodipine Besylate (Norvasc) 5 mg DAILY PO Last administered on 09/15/19at 09:34; Start 09/14/19 at 09:00 Aspirin (Aspirin Chewable) 81 mg DAILY PO Last administered on 09/15/19 09:33; Start 09/14/19 at 09:00 Famotidine (Pepcid) 20 mg DAILY PO Last administered on 09/15/19 09:33; Start 09/14/19 at 09:00 Levothyroxine Sodium (Synthroid) 75 mcg DAILY06 PO ; Start 09/14/19 at 06:00; Stop 09/14/19 at 03:12; Status DC Losartan Potassium (Cozaar) 100 mg DAILY PO Last administered on 09/14/19 08:47; Start 09/14/19 at 09:00 Ceftriaxone Sodium (Rocephin) 1 gm Q24H IVP Last administered on 09/15/19 09:35; Start 09/14/19 at 10:00 Azithromycin (Zithromax) 250 mg DAILY PO Last administered on 09/14/19 08:48; Start 09/14/19 at 09:00; Stop 09/14/19 at 11:26; Status DC Ascorbic Acid (Vitamin C) 500 mg BID PO Last administered on 09/15/19 09:33; Start 09/13/19 at 21:00 Levothyroxine Sodium (Synthroid) 75 mcg DAILY06 PO Last administered on 09/15/19 06:10; Start 09/14/19 at 03:30 Hydroxychloroquine Sulfate (Plaquenil) 200 mg BID PO Last administered on 09/15/19 09:35; Start 09/14/19 at 11:30; Stop 09/17/19 at 21:01 Doxycycline Hyclate (Vibra-Tab) 100 mg BID PO Last administered on 09/15/19 09:33; Start 09/15/19 at 09:00 Acetaminophen (Tylenol) 650 mg PRN Q6HRS PRN PO FEVER Last administered on 09/14/19 12:37; Start 09/14/19 at 12:00 Lactobacillus Rhamnosus (Culturelle) 1 cap BID PO Last administered on 09/15/19 09:33; Start 09/14/19 at 21:00 Active Scripts Active Reported Vitamin C (Ascorbic Acid) 500 Mg Tab.chew 500 Mg PO BID Benicar (Olmesartan Medoxomil) 40 Mg Tablet 1 Tab PO DAILY 30 Days Famotidine 20 Mg Tablet 20 Mg PO BID Aspirin 81 Mg Tab.chew 81 Mg PO DAILY Levothyroxine Sodium 75 Mcg Tablet 1 Tab PO DAILY Amlodipine Besylate 10 Mg Tablet 0.5 Tab PO DAILY Vitals/I & O Vital Sign - Last 24 Hours 09/14/19 09/14/19 09/14/19 09/14/19 14:58 19:00 20:00 23:00 Temp 98.6 97.7 98.8 98.6 97.7 98.8 Pulse 83 85 87 Resp 19 20 16 B/P (MAP) 117/56 (76) 142/61 (88) 132/60 (84) Pulse Ox 98 100 93 O2 Delivery Nasal Cannula Nasal Cannula O2 Flow Rate 3.0 3.0 09/15/19 09/15/19 09/15/19 09/15/19 03:00 07:00 09:34 10:38 Temp 99.4 99.1 98.2 99.4 99.1 98.2 Pulse 86 84 84 87 Resp 18 17 17 B/P (MAP) 135/63 (87) 114/55 (74) 114/55 136/63 (87) Pulse Ox 100 94 100 O2 Delivery Nasal Cannula Nasal Cannula O2 Flow Rate 3.0 3.0 Intake and Output 09/14/19 09/14/19 09/15/19 15:00 23:00 07:00 Intake Total 500 ml 420 ml Balance 500 ml 420 ml FERNANDEZ CANNON MD Sep 15, 2019 12:11
--- NOTE | 2019-09-15 13:11 | NUR ---
SS following up with discharge planning. SS reviewed pt chart and discussed with pt RN, pt, and pt's son. Pt is from home alone and is currently requiring oxygen. Pt reported having no home oxygen at home. Pt's RN reported that pt is stand by assist. PT/OT ordered. Pt and pt's son reported that pt's boyfriend recently but pt has a lot of family and friends available to help her when she returns to home. Pt's son reported that they mow her yard and can drop off meals. Pt's son requesting oxygen and home healthcare services when pt returns to home. SS will continue to follow for discharge planning.
[2019-09-15 14:49] VITALS: BP 143/63
[2019-09-15 19:00] VITALS: BP 157/73
[2019-09-15 23:00] VITALS: BP 152/69
[2019-09-16 03:00] VITALS: BP 118/56
[2019-09-16] MEDS: LEVOTHYROXINE 75 MCG TABLET PO SCH (06:21)
[2019-09-16 07:00] VITALS: BP 137/67
[2019-09-16] MEDS ORDERED: DOXY100T PO (09:10)
[2019-09-16] MEDS ORDERED: LACT1CAP19 PO (09:10)
[2019-09-16] MEDS ORDERED: HYDR200T5 PO (09:10)
--- NOTE | 2019-09-16 09:11 | SNU/HH DC ---
DISCHARGE WITH HOME HEALTH DISCHARGE INFORMATION: Discharge Date: Sep 16, 2019 Final Diagnosis: Problems Medical Problems: (1) COVID-19 virus infection Status: Acute (2) Pneumonia Status: Acute Condition on Discharge: Stable CODE STATUS: Code Status: Full HOME HEALTH: Face to Face: I certify this patient is under my care and that I, or a nurse practitioner or physician's visual merchandising assistant working with me, had a face to face encounter that meets the physician face to face encounter requirements with this patient on []. Medical Complications: Pneumonia RN For Eval/Treatment: Yes Physical Therapy For: Evalulation/Treatment Pt Meets Homebound Status: Extreme weakness w/ amb., Limited distance walking CERTIFICATION STATEMENT: Certification Statement: Certification Statement: Based on the above finding, I certify that this patient is confined to the home and needs intermittent group home care, physical therapy and/or speech therapy, or continues to need occupational therapy.~ This patient is under my care, and I have initiated the establishment of the plan of care.~ This patient will be followed by myself or a community physician who will periodically review the plan of care. Home Meds Active Scripts Lactobacillus Rhamnosus Gg (CULTURELLE) 1 Each Cap.sprink, 1 CAP PO BID for PROBIOTIC for 30 Days, #60 CAP Prov:FERNANDEZ CANNON MD 09/16/19 Hydroxychloroquine Sulfate (HYDROXYCHLOROQUINE SULFATE) 200 Mg Tablet, 200 MG PO BID for EXPERIMENTAL DRUG for 3 Days, #6 TAB Prov:FERNANDEZ CANNON MD 09/16/19 Doxycycline Hyclate (DOXYCYCLINE HYCLATE) 100 Mg Tablet, 100 MG PO BID for PNEUMONIA for 5 Days, #10 TAB Prov:FERNANDEZ CANNON MD 09/16/19 Reported Medications Ascorbic Acid (VITAMIN C) 500 Mg Tab.chew, 500 MG PO BID for vitamin, TAB.CHEW 09/13/19 Olmesartan Medoxomil (BENICAR) 40 Mg Tablet, 1 TAB PO DAILY for HTN for 30 Days, #30 TAB 0 Refills 09/13/19 Famotidine (FAMOTIDINE) 20 Mg Tablet, 20 MG PO BID for GERD, TAB 09/13/19 Aspirin (ASPIRIN) 81 Mg Tab.chew, 81 MG PO DAILY, TAB.CHEW 11/03/15 Levothyroxine Sodium (LEVOTHYROXINE SODIUM) 75 Mcg Tablet, 1 TAB PO DAILY, #30 TAB 5 Refills 02/24/14 Amlodipine Besylate (AMLODIPINE BESYLATE) 10 Mg Tablet, 0.5 TAB PO DAILY, #30 TAB 5 Refills 02/24/14 Discontinued Reported Medications Ranitidine Hcl (RANITIDINE HCL) 150 Mg Tablet, 1 TAB PO BID PRN for PAIN, #180 TAB 3 Refills 02/24/14 Losartan Potassium (LOSARTAN POTASSIUM) 100 Mg Tablet, 1 TAB PO DAILY, #30 TAB 5 Refills 02/24/14 FERNANDEZ CANNON MD Sep 16, 2019 09:11
[2019-09-16] MEDS: amLODIPine BESYLATE 5 MG TABLET PO SCH (09:14)
[2019-09-16] MEDS: LACTOBACILLUS RHAMNOSUS GG 1 CAPSULE. PO SCH (09:14)
[2019-09-16] MEDS: HYDROXYCHLOROQUINE 200 MG TABLET PO SCH (09:14)
[2019-09-16] MEDS: ASPIRIN CHEWABLE 81 MG TABLET. PO SCH (09:14)
[2019-09-16] MEDS: FAMOTIDINE 20 MG TABLET. PO SCH (09:14)
[2019-09-16] MEDS: DOXYCYCLINE HYCLATE 100 MG TABLET PO SCH (09:14)
[2019-09-16] MEDS: ASCORBIC ACID 500 MG TABLET PO SCH (09:14)
[2019-09-16] MEDS: LOSARTAN POTASSIUM 50 MG TABLET. PO SCH (09:14)
[2019-09-16 10:47] VITALS: BP 138/63
--- NOTE | 2019-09-16 11:33 | PDOC ---
Infectious Disease Note Subjective Subjective Feeling some better. Had a little more of an appetite this am Some loose stool bit less Fever better. No gross SOA/rash Vital Sign Vital Signs Vital Signs Date Time Temp Pulse Resp B/P (MAP) Pulse Ox O2 Delivery O2 Flow Rate FiO2 09/16/19 10:47 97.9 87 17 138/63 (88) 95 Room Air 97.9 09/16/19 08:00 3.0 Physical Exam PHYSICAL EXAM GENERAL: The patient is lying in chair in no apparent distress, Looks well HEENT: Pupils equally round. Oropharynx is pink and moist. No exudates or lesions. NECK: Supple. LUNGS: Clear to auscultation. No accessory muscle use. HEART: S1 and S2 regular. QT interval 0.32 seconds. ABDOMEN: Soft, nontender with bowel sounds present. EXTREMITIES: No gross edema or cyanosis. SKIN: Warm to touch. No signs of rash. NEUROLOGIC: Alert and answering questions appropriately. Labs Micro Microbiology 09/13/19 Blood Culture - Preliminary, Resulted NO GROWTH AFTER 1 DAY Objective Assessment Acute respiratory failure with patchy bilateral opacities, reportedly positive for COVID-19. On 2L O2 -QT interval 0.32 sec -Reportedly [facility] dept notified patient that she tested positive on 09/01 -Exposed from a friend who has since from COVID. Fever - Flu neg COVID + Hypertension Hypothyroidism Plan Plan of Care The 1st dose of Azithromycin and hydroxychloraquine were given in ER. Monitor QT interval/side effects Discontinued the Rocephin 09/14 Discont doxy today Cont Hydrox at 200 mg - given fever/symptoms and known exposure complete 5 days D/w nursing AISHWARYA JENKINS MD Sep 16, 2019 11:33
--- NOTE | 2019-09-16 13:44 | NUR ---
pt discharged home with home health. pt on 2Lnc when discharging. tank instructions given. pt v/u. meds and follow up reviewed. pt stable upon dc. IV removed, cath intact.
== END 2019-09-16 13:46 | disposition home health service (06) | DRG 177 ==
LOC: ER 09:44 → 1 WEST ICU 11:08 → 6 SOUTH 12:46
PROVIDERS: ADMIT Internal Medicine; ATTEND Internal Medicine
DX: U07.1 COVID-19 (principal); J96.01 Acute respiratory failure with hypoxia; J12.89 Other viral pneumonia; E03.9 Hypothyroidism, unspecified; I10 Essential (primary) hypertension; K59.00 Constipation, unspecified; Z83.3 Family history of diabetes mellitus; K21.9 Gastro-esophageal reflux disease without esophagitis; M19.90 Unspecified osteoarthritis, unspecified site; H26.9 Unspecified cataract
CPT/HCPCS: 36415; 71045; 80048; 80053; 83605; 83735; 83880; 84484; 85025; 85610; 85730; 86738; 87040; 87804; 93005; 94618; 96365; 96375; 99291; J0456; J0696; J7030; G0378

== ENCOUNTER → 2019-11-26 | Outpatient (CLI) | payer MEDICARE ==
[~2019-11-26] MED LIST changes: +ASCO500T53 PO; +DOXY100T PO; +FAMO20TA5 PO; +HYDR200T5 PO; +LACT1CAP19 PO; +OLME40TA12 PO
--- NOTE | 2019-11-26 15:22 | RAD ---
DATE: 11/26/2019 7:38 AM EXAM: MAMMO COURTNEY SCREENING BILATERAL HISTORY: Screening COMPARISON: 11/24/2018, 11/21/2017 Bilateral CC and MLO views of the breasts were performed. Bilateral breast tomosynthesis was performed in CC and MLO projections. This study was interpreted with the benefit of Computerized Aided Detection (CAD). FINDINGS: Breast Density: SCATTERED The breast parenchyma shows scattered fibroglandular densities. Breast parenchyma level B No suspicious masses, microcalcifications or architectural distortion is present to suggest malignancy in either breast. Benign biopsy marker in the middle third upper inner left breast is redemonstrated. The visualized axillae are unremarkable. IMPRESSION: No mammographic evidence of malignancy. BI-RADS CATEGORY: 2 BENIGN FINDING(S) RECOMMENDED FOLLOW-UP: 12M 12 MONTH FOLLOW-UP Annual screening mammography is recommended, unless clinically indicated sooner based on symptoms or change in physical exam. PQRS compliance statement: Patient information was entered into a reminder system with a target due date 11/26/2020 for the next mammogram. Mammography is a sensitive method for finding small breast cancers, but it does not detect them all and is not a substitute for careful clinical examination. A negative mammogram does not negate a clinically suspicious finding and should not result in delay in biopsying a clinically suspicious abnormality. "Our facility is accredited by the [employer] Mammography [employer]."
== END | disposition home or self-care (01) ==
LOC: MAMMO 07:37
PROVIDERS: ATTEND Family Medicine
DX: Z12.31 Encounter for screening mammogram for malignant neoplasm of breast (principal); N64.89 Other specified disorders of breast
CPT/HCPCS: 77063; 77067

== ENCOUNTER 2020-07-06 08:56 | Observation (INO) | payer MEDICARE ==
[~2020-07-06] VITALS: Ht 154.9 cm; Wt 52.9 kg
[~2020-07-06 08:56] MED LIST changes: +AMLO-187 PO; -AMLO10TA8 PO
--- NOTE | 2020-07-06 09:21 | RAD ---
Exam performed: One view chest. Indication: Reason: DIZZY, WEAKNESS / Spl. Instructions: / History: Date of Service: 07/06/2020 9:07 AM Comparison: One view chest from 09/13/2019. Single AP upright portable view chest findings: Cardiomediastinal silhouette is within limits of normal. No acute infiltrates, effusion or pneumotho rax is detected. The bony structures are normal. Impression: No acute cardiopulmonary process is detected. Electronically signed by: Sarah Flroes MD (07/06/2020 9:18 AM) [id number]
[2020-07-06 09:31] LABS: BASO # 0.1 x10^3/uL (0.0-0.2); BASO % 1 % (0-3); EOS # 0.2 x10^3/uL (0.0-0.7); EOS % 3 % (0-3); HEMATOCRIT 39.9 % (36.0-47.0); HEMOGLOBIN 13.6 g/dL (12.0-15.5); LYMPH # 2.4 x10^3/uL (1.0-4.8); LYMPH % 42 % (24-48); MEAN CORPUSCULAR HEMOGLOBIN 31 pg (25-35); MEAN CORPUSCULAR HGB CONC 34 g/dL (31-37); MEAN CORPUSCULAR VOLUME 90 fL (79-100); MONO # 0.4 x10^3/uL (0.0-1.1); MONO % 8 % (0-9); NEUT # 2.6 x10^3/uL (1.8-7.7); NEUT % 46 % (31-73); PLATELET COUNT 266 x10^3/uL (140-400); RED BLOOD COUNT 4.43 x10^6/uL (3.50-5.40); RED CELL DISTRIBUTION WIDTH 13.3 % (11.5-14.5); WHITE BLOOD COUNT 5.6 x10^3/uL (4.0-11.0)
[2020-07-06 09:37] LABS: CALCIUM 9.6 mg/dL (8.5-10.1); CREATININE 0.9 mg/dL (0.6-1.0); GFR 72.7; POTASSIUM 3.5 mmol/L (3.5-5.1)
--- NOTE | 2020-07-06 10:58 | PDOC1 ---
History and Physical Date of Admission Date of Admission DATE: 07/06/20 TIME: 10:48 Identification/Chief Complaint Chief Complaint Syncope Source Source: Chart review, Patient History of Present Illness History of Present Illness Patient is a 79-year-old female who presents to the ER after syncopal episode at a grocery store today. Patient states symptoms of trouble standing at checkout line across the store. She reports associated dizziness, blurry vision prior to her syncopal episode. She reportedly lost consciousness for a few seconds, but denies head injury. Upon EMS arrival her blood pressure was reportedly 80/40 mmHg, and she was placed in the supine position with improvement. She has a history of similar symptoms that initially began in 2017. Over the past several months she reports symptoms when she gets up to make breakfast and while walking around the house. She is supposed to have an outpatient cardiac evaluation several months back but this was canceled due to to her genesis the COVID-19 virus. She currently denies headache, neck pain, back pain. Will admit patient for further medical management. Past Medical History Past Medical History Hypertension, hypothyroidism, GERD Past Surgical History Past Surgical History Cataract surgery, D&C Family History Family History CAD Social History Smoke: No ALCOHOL: none Drugs: None Current Medications Current Medications Active Scripts Active Culturelle (Lactobacillus Rhamnosus Gg) 1 Each Cap.sprink 1 Cap PO BID 30 Days Hydroxychloroquine Sulfate 200 Mg Tablet 200 Mg PO BID 3 Days Doxycycline Hyclate 100 Mg Tablet 100 Mg PO BID 5 Days Reported Vitamin C (Ascorbic Acid) 500 Mg Tab.chew 500 Mg PO BID Benicar (Olmesartan Medoxomil) 40 Mg Tablet 1 Tab PO DAILY 30 Days Famotidine 20 Mg Tablet 20 Mg PO BID Aspirin 81 Mg Tab.chew 81 Mg PO DAILY Levothyroxine Sodium 75 Mcg Tablet 1 Tab PO DAILY Amlodipine Besylate 10 Mg Tablet 0.5 Tab PO DAILY Allergies Allergies: Coded Allergies: No Known Drug Allergies (Unverified , 11/03/15) ROS Review of System GENERAL: No history of weight change, weakness or fevers. SKIN: No bruising, hair changes or rashes. EYES: No blurred, double or loss of vision. NOSE AND THROAT: No history of nosebleeds, hoarseness or sore throat. HEART: Syncope. Denies chest pain, denies palpitations. LUNGS: Denies cough, hemoptysis, wheezing or shortness of breath. GASTROINTESTINAL: Denies nausea, vomiting, abdominal pain. GENITOURINARY: Denies dysuria, frequency, urgency, hematuria. NEUROLOGIC: Dizziness, lightheadedness. Denies history of numbness, tingling, tremor or weakness. PSYCHIATRIC: Denies anxiety, denies depression. ENDOCRINE: No history of heat or cold intolerance, polyuria or polydipsia. EXTREMITIES: Denies muscle weakness, joint pain, pain on walking or stiffness. Physical Exam Physical Exam General: Alert, Oriented X3, Cooperative, No acute distress HEENT: PERRLA, EOMI Lungs: Clear to auscultation, Normal air movement Heart: RRR, systolic murmur Cardiovascular: S1, S2 Abdomen: Normal bowel sounds, Soft, No tenderness Extremities: No clubbing, No cyanosis Skin: No rashes, No significant lesion Neuro: Normal speech, Normal tone, Sensation intact Psych/Mental Status: Mental status NL, Mood NL Vitals Vitals Vital Signs Date Time Temp Pulse Resp B/P (MAP) Pulse Ox O2 Delivery O2 Flow Rate FiO2 07/06/20 09:56 72 21 99 07/06/20 09:05 98.1 162/69 (100) Room Air 98.1 Labs Labs Laboratory Tests Test 07/06/20 09:15 White Blood Count 5.6 x10^3/uL (4.0-11.0) Red Blood Count 4.43 x10^6/uL (3.50-5.40) Hemoglobin 13.6 g/dL (12.0-15.5) Hematocrit 39.9 % (36.0-47.0) Mean Corpuscular Volume 90 fL (79-100) Mean Corpuscular Hemoglobin 31 pg (25-35) Mean Corpuscular Hemoglobin Concent 34 g/dL (31-37) Red Cell Distribution Width 13.3 % (11.5-14.5) Platelet Count 266 x10^3/uL (140-400) Neutrophils (%) (Auto) 46 % (31-73) Lymphocytes (%) (Auto) 42 % (24-48) Monocytes (%) (Auto) 8 % (0-9) Eosinophils (%) (Auto) 3 % (0-3) Basophils (%) (Auto) 1 % (0-3) Neutrophils # (Auto) 2.6 x10^3/uL (1.8-7.7) Lymphocytes # (Auto) 2.4 x10^3/uL (1.0-4.8) Monocytes # (Auto) 0.4 x10^3/uL (0.0-1.1) Eosinophils # (Auto) 0.2 x10^3/uL (0.0-0.7) Basophils # (Auto) 0.1 x10^3/uL (0.0-0.2) Sodium Level 140 mmol/L (136-145) Potassium Level 3.5 mmol/L (3.5-5.1) Chloride Level 104 mmol/L (98-107) Carbon Dioxide Level 25 mmol/L (21-32) Anion Gap 11 (6-14) Blood Urea Nitrogen 13 mg/dL (7-20) Creatinine 0.9 mg/dL (0.6-1.0) Estimated GFR (Cockcroft-Gault) 72.7 Glucose Level 186 mg/dL (70-99) Calcium Level 9.6 mg/dL (8.5-10.1) Troponin I Quantitative < 0.017 ng/mL (0.000-0.055) Laboratory Tests Test 07/06/20 09:15 White Blood Count 5.6 x10^3/uL (4.0-11.0) Red Blood Count 4.43 x10^6/uL (3.50-5.40) Hemoglobin 13.6 g/dL (12.0-15.5) Hematocrit 39.9 % (36.0-47.0) Mean Corpuscular Volume 90 fL (79-100) Mean Corpuscular Hemoglobin 31 pg (25-35) Mean Corpuscular Hemoglobin Concent 34 g/dL (31-37) Red Cell Distribution Width 13.3 % (11.5-14.5) Platelet Count 266 x10^3/uL (140-400) Neutrophils (%) (Auto) 46 % (31-73) Lymphocytes (%) (Auto) 42 % (24-48) Monocytes (%) (Auto) 8 % (0-9) Eosinophils (%) (Auto) 3 % (0-3) Basophils (%) (Auto) 1 % (0-3) Neutrophils # (Auto) 2.6 x10^3/uL (1.8-7.7) Lymphocytes # (Auto) 2.4 x10^3/uL (1.0-4.8) Monocytes # (Auto) 0.4 x10^3/uL (0.0-1.1) Eosinophils # (Auto) 0.2 x10^3/uL (0.0-0.7) Basophils # (Auto) 0.1 x10^3/uL (0.0-0.2) Sodium Level 140 mmol/L (136-145) Potassium Level 3.5 mmol/L (3.5-5.1) Chloride Level 104 mmol/L (98-107) Carbon Dioxide Level 25 mmol/L (21-32) Anion Gap 11 (6-14) Blood Urea Nitrogen 13 mg/dL (7-20) Creatinine 0.9 mg/dL (0.6-1.0) Estimated GFR (Cockcroft-Gault) 72.7 Glucose Level 186 mg/dL (70-99) Calcium Level 9.6 mg/dL (8.5-10.1) Troponin I Quantitative < 0.017 ng/mL (0.000-0.055) Images Images Exam performed: One view chest. Indication: Reason: DIZZY, WEAKNESS / Spl. Instructions: / History: Date of Service: 07/06/2020 9:07 AM Comparison: One view chest from 09/13/2019. Single AP upright portable view chest findings: Cardiomediastinal silhouette is within limits of normal. No acute infiltrates, effusion or pneumothorax is detected. The bony structures are normal. Impression: No acute cardiopulmonary process is detected. VTE Prophylaxis Ordered VTE Prophylaxis Devices: Yes VTE Pharmacological Prophylaxi: No Assessment/Plan Assessment/Plan Syncope Plan: Consultation placed to cardiology Will obtain orthostatic vitals and echocardiogram PT/OT to help educate patient on ambulating with orthostatic hypotension Fall precautions Troponin <0.017 Resume home medications FEN - Cardiac diet PPX - Heparin FULL CODE Dispo - inpatient for above Justifications for Admission Other Justification ADRIANE BANKS MD Jul 06, 2020 10:58
--- NOTE | 2020-07-06 10:58 | ED.ADGEN ---
Past Medical History Past Medical History: GERD, Hypertension, Hypothyroid Past Surgical History: Other Additional Past Surgical Histo: Cataract, D&C Smoking Status: Never Smoker Alcohol Use: None Drug Use: None General Adult EDM: Chief Complaint: NEAR SYNCOPE HPI: HPI: Patient is an 79-year-old female past medical history of hypertension who presents to the emergency room after having a syncopal episode at the grocery store. Patient states for the last couple weeks when she wakes up and she gets up and makes herself breakfast she feels dizzy. A lot of times she has to sit down for several minutes before she is able to get up again. She denies any chest pain or shortness of breath when this occurs. She does not have any blurred vision, headache, fever, chills, sweats. She states she is eating normally. She denies any recent changes to her medications. She states her blood pressure has been low in the morning prior to her taking her blood pressure medications. This is the first time she has had syncope. She states before the episode she felt hot and dizzy and then remembers waking up in the chair. Review of Systems: Review of Systems: Complete ROS is negative unless otherwise documented in HPI Allergies: Allergies: Allergies Coded Allergies Type Severity Reaction Last Updated Verified No Known Drug Allergies 11/03/15 No Physical Exam: PE: General: Awake, alert, NAD. Well Nourished, well hydrated. Cooperative HEENT: Atraumatic, EOMI, PERRL, airway patent, moist oral mucosa Neck: Supple, trachea midline Respiratory: CTA bilaterally, normal effort, no wheezing/crackles CV: RRR, no murmur, cap refill <2 GI: Soft, nondistended, nontender, no masses MSK: No obvious deformities Skin: Warm, dry, intact Neuro: A&O x3, speech NL, sensory and motor grossly intact, no focal deficits Psych: Normal affect, normal mood, not suicidal or homicidal Current Patient Data: Labs: Laboratory Tests Test 07/06/20 09:15 White Blood Count 5.6 x10^3/uL (4.0-11.0) Red Blood Count 4.43 x10^6/uL (3.50-5.40) Hemoglobin 13.6 g/dL (12.0-15.5) Hematocrit 39.9 % (36.0-47.0) Mean Corpuscular Volume 90 fL (79-100) Mean Corpuscular Hemoglobin 31 pg (25-35) Mean Corpuscular Hemoglobin Concent 34 g/dL (31-37) Red Cell Distribution Width 13.3 % (11.5-14.5) Platelet Count 266 x10^3/uL (140-400) Neutrophils (%) (Auto) 46 % (31-73) Lymphocytes (%) (Auto) 42 % (24-48) Monocytes (%) (Auto) 8 % (0-9) Eosinophils (%) (Auto) 3 % (0-3) Basophils (%) (Auto) 1 % (0-3) Neutrophils # (Auto) 2.6 x10^3/uL (1.8-7.7) Lymphocytes # (Auto) 2.4 x10^3/uL (1.0-4.8) Monocytes # (Auto) 0.4 x10^3/uL (0.0-1.1) Eosinophils # (Auto) 0.2 x10^3/uL (0.0-0.7) Basophils # (Auto) 0.1 x10^3/uL (0.0-0.2) Sodium Level 140 mmol/L (136-145) Potassium Level 3.5 mmol/L (3.5-5.1) Chloride Level 104 mmol/L (98-107) Carbon Dioxide Level 25 mmol/L (21-32) Anion Gap 11 (6-14) Blood Urea Nitrogen 13 mg/dL (7-20) Creatinine 0.9 mg/dL (0.6-1.0) Estimated GFR (Cockcroft-Gault) 72.7 Glucose Level 186 mg/dL (70-99) H Calcium Level 9.6 mg/dL (8.5-10.1) Troponin I Quantitative < 0.017 ng/mL (0.000-0.055) Triglycerides Level 96 mg/dL (0-150) Cholesterol Level 180 mg/dL (0-200) LDL Cholesterol, Calculated 108 mg/dL (0-100) H VLDL Cholesterol, Calculated 19 mg/dL (0-40) Non-HDL Cholesterol Calculated 127 mg/dL (0-129) HDL Cholesterol 53 mg/dL (40-60) Cholesterol/HDL Ratio 3.4 Thyroid Stimulating Hormone (TSH) 0.067 uIU/mL (0.358-3.74) L Laboratory Tests 07/06/20 09:15 Laboratory Tests 07/06/20 09:15 Vital Signs: Vital Signs Date Time Temp Pulse Resp B/P (MAP) Pulse Ox O2 Delivery O2 Flow Rate FiO2 07/06/20 10:29 80 98 07/06/20 09:56 21 07/06/20 09:05 98.1 162/69 (100) Room Air 98.1 EKG: EKG: [] Heart Score: Risk Factors: Risk Factors: DM, Current or recent (<one month) smoker, HTN, HLP, family history of CAD, obesity. Risk Scores: Score 0 - 3: 2.5% MACE over next 6 weeks - Discharge Home Score 4 - 6: 20.3% MACE over next 6 weeks - Admit for Clinical Observation Score 7 - 10: 72.7% MACE over next 6 weeks - Early Invasive Strategies Radiology/Procedures: Radiology/Procedures: [] Course & Med Decision Making: Course & Med Decision Making Pertinent Labs and Imaging studies reviewed. (See chart for details) Patient is an 79-year-old female who presents to the emergency room after having a syncopal episode. Upon EMS arrival patient was hypotensive which is now resolved here in the emergency room. It is possible this is medication related, however given patient's age and risk factors this could be cardiac in nature. Work-up is unremarkable. Patient will be admitted for syncope evaluation. Dragon Disclaimer: Dragon Disclaimer: This electronic medical record was generated, in whole or in part, using a voice recognition dictation system. Departure Departure Impression: Primary Impression: Syncope Disposition: ADMITTED INPT THIS HOSP Condition: STABLE Referrals: SHYLA ANTHONY MD (PCP) AIDAN TRINH MD Jul 06, 2020 10:58
[2020-07-06] MEDS ORDERED: ONDANSETRON PF 4 MG/2 ML VIAL. IVP PRN (11:00)
[2020-07-06] MEDS ORDERED: MAG HYDROX/ALUMINUM HYD/SIMETH 30 ML ORAL.SUSP PO PRN (11:00)
[2020-07-06] MEDS ORDERED: CALCIUM CARBONATE 500 MG TAB.CHEW PO PRN (11:00)
[2020-07-06] MEDS ORDERED: BISACODYL 10 MG SUPP.RECT. PR PRN (11:00)
[2020-07-06] MEDS ORDERED: MAGNESIUM HYDROXIDE 2,400 MG/30 ML ORAL.SUSP. PO PRN (11:00)
[2020-07-06] MEDS ORDERED: ACETAMINOPHEN 325 MG TABLET. PO PRN (11:00)
--- NOTE | 2020-07-06 12:29 | PDOC2 ---
TL LOWERY VIDEO CONTROL ENGINEER 07/06/20 1229: CARDIAC CONSULT DATE OF CONSULT Date of Consult DATE: 07/06/20 TIME: 12:24 REASON FOR CONSULT Reason for Consult: syncope REFERRING PHYSICIAN Referring Physician: Dr. Ruggiero SOURCE Source: Chart review, Patient HISTORY OF PRESENT ILLNESS HISTORY OF PRESENT ILLNESS This is an 79 yo female who presented to syncopal episode at [employer]. Patient reports she was standing at the counter while her groceries were being checked out and began feeling dizzy, lightheaded, and weak in the legs. Also felt flush. She continued to feel weak, but began sacking her groceries. Diz ziness persisted and she subsequently passes out. Woke up to store employee asking if she was okay. EMS was called. Denies hitting her head. Did have brief loss of consciousness. Blood pressure was low upon EMS arrival. She denies any chest pain, palpitations, or shortness of breath. No previous syncopal episode. Does report falling yesterday on step. Reports she was walking up steps and reading mail. Tripped on the step and feel. No dizziness or LOC. Did not hit head. Does reports occasionally dizziness upon standing over the last couple of weeks. PAST MEDICAL HISTORY Cardiovascular: HTN GI: GERD Musculoskeletal: Osteoarthritis Infectious disease: Other (COVID ) Endocrine: Hypothyroidism PAST SURGICAL HISTORY Past Surgical History: Other (D and C) FAMILY HISTORY Family History: Diabetes SOCIAL HISTORY Smoke: No ALCOHOL: none Drugs: None Lives: with Family ALLERGIES ALLERGIES: Coded Allergies: No Known Drug Allergies (Unverified , 11/03/15) ROS Review of System 14 point ROS conducted with pertinent positives noted above in hPI PHYSICAL EXAM General: Alert, Oriented X3, Cooperative, No acute distress HEENT: Atraumatic Lungs: Clear to auscultation Heart: Regular rate Abdomen: Soft, No tenderness Extremities: No edema, Normal pulses Skin: No breakdown Neuro: Normal speech, Sensation intact Psych/Mental Status: Mental status NL, Mood NL MUSCULOSKELETAL: Osteoarthritic changes both hands VITALS/I&O VITALS/I&O: Vital Signs Date Time Temp Pulse Resp B/P (MAP) Pulse Ox O2 Delivery O2 Flow Rate FiO2 07/06/20 09:56 72 21 99 07/06/20 09:05 98.1 162/69 (100) Room Air 98.1 LABS Lab: Laboratory Tests Test 07/06/20 09:15 White Blood Count 5.6 x10^3/uL (4.0-11.0) Red Blood Count 4.43 x10^6/uL (3.50-5.40) Hemoglobin 13.6 g/dL (12.0-15.5) Hematocrit 39.9 % (36.0-47.0) Mean Corpuscular Volume 90 fL (79-100) Mean Corpuscular Hemoglobin 31 pg (25-35) Mean Corpuscular Hemoglobin Concent 34 g/dL (31-37) Red Cell Distribution Width 13.3 % (11.5-14.5) Platelet Count 266 x10^3/uL (140-400) Neutrophils (%) (Auto) 46 % (31-73) Lymphocytes (%) (Auto) 42 % (24-48) Monocytes (%) (Auto) 8 % (0-9) Eosinophils (%) (Auto) 3 % (0-3) Basophils (%) (Auto) 1 % (0-3) Neutrophils # (Auto) 2.6 x10^3/uL (1.8-7.7) Lymphocytes # (Auto) 2.4 x10^3/uL (1.0-4.8) Monocytes # (Auto) 0.4 x10^3/uL (0.0-1.1) Eosinophils # (Auto) 0.2 x10^3/uL (0.0-0.7) Basophils # (Auto) 0.1 x10^3/uL (0.0-0.2) Sodium Level 140 mmol/L (136-145) Potassium Level 3.5 mmol/L (3.5-5.1) Chloride Level 104 mmol/L (98-107) Carbon Dioxide Level 25 mmol/L (21-32) Anion Gap 11 (6-14) Blood Urea Nitrogen 13 mg/dL (7-20) Creatinine 0.9 mg/dL (0.6-1.0) Estimated GFR (Cockcroft-Gault) 72.7 Glucose Level 186 mg/dL (70-99) H Calcium Level 9.6 mg/dL (8.5-10.1) Troponin I Quantitative < 0.017 ng/mL (0.000-0.055) Laboratory Tests 07/06/20 09:15 Laboratory Tests 07/06/20 09:15 ASSESSMENT/PLAN ASSESSMENT/PLAN 1. Syncopal episode; ? vasovagal 2. Hypertension; controlled 3. Hypothyroidism 4. COVID recovery (09/2019) Recommendations Lipids, TSH EKG Check orthos Echo to assess LV systolic function Consider outpatient ischemic evaluation Further pending above COTY ALVAREZ MD 07/06/20 1610: CARDIAC CONSULT ASSESSMENT/PLAN ASSESSMENT/PLAN Patient seen and examined. Agree with ENVIRONMENTAL INSPECTOR's assessment and plan. Syncope most probably vasovagal. Telemetry did not show any significant arrhythmias so far. Check 2D echo to assess LV function and rule out any significant structural abnormalities Plan for outpatient event monitor Thank you for your consultation TL LOWERY APRN Jul 06, 2020 12:29 COTY ALVAREZ MD Jul 06, 2020 16:10
[2020-07-06 13:00] LABS: CHOLESTEROL/HDL RATIO 3.4
[2020-07-06] MEDS: LACTOBACILLUS RHAMNOSUS GG 1 CAPSULE. PO SCH ×2 (13:16→21:08)
[2020-07-06] MEDS: FAMOTIDINE 20 MG TABLET. PO SCH ×2 (13:18→21:08)
[2020-07-06] MEDS: amLODIPine BESYLATE 10 MG TABLET PO SCH (13:18)
[2020-07-06] MEDS: ASPIRIN CHEWABLE 81 MG TABLET. PO SCH (13:19)
[2020-07-06] MEDS: LOSARTAN POTASSIUM 50 MG TABLET. PO SCH (13:19)
[2020-07-06 14:45] VITALS: BP 162/66
--- NOTE | 2020-07-06 15:15 | NUR ---
The patient, LUH DOMINGUEZ, 79 y/o, F admitted by ADRIANE BANKS MD, was given written information regarding hospital policies, unit procedures and contact persons. Valuables were checked and left at bedside with patient. Patient advised she has passed out 2 other times in the last year. However, no diagnosis has been made. Educated patient on fall precautions/policies. Patient verbalized understanding.
[2020-07-06] MEDS ORDERED: LEVO88TA4 PO (16:11)
[2020-07-06] MEDS ORDERED: MULT-245 PO (16:11)
--- NOTE | 2020-07-06 16:45 | CARD ---
MR#: [id number] Date of Study: 07/06/2020 Ordering Physician: ADRIANE BANKS, Referring Physician: ADRIANE BANKS, Tech: Hannah Sahu RDCS APPROVED REPORT EXAM: Two-dimensional and M-mode echocardiogram with Doppler and color Doppler. Other Information Quality : Good INDICATION Syncope 2D DIMENSIONS RVDd3.1 (2.9-3.5cm)Left Atrium(2D)2.1 (1.6-4.0cm) IVSd1.2 (0.7-1.1cm)Aortic Root(2D)2.2 (2.0-3.7cm) LVDd2.2 (3.9-5.9cm)LVOT Diameter1.9 (1.8-2.4cm) PWd1.2 (0.7-1.1cm)LVDs1.4 (2.5-4.0cm) FS (%) 34.9 %SV11.0 ml LVEF(%)66.9 (>50%) Aortic Valve AoV Peak Jules.191.6cm/sAoV VTI37.8cm AO Peak GR.14.7mmHgLVOT Peak Jules.137.4cm/s AO Mean GR.8mmHgAVA (VMAX)2.14cm2 ROJAS (VTI)2.60cm2 Mitral Valve MV E Mhfiumgu96.5cm/sMV DECEL YPDZ735hx MV A Msjzkgeg837.4cm/sE/A Ratio0.6 Tricuspid Valve TR P. Zxmgxryd942nd/sRAP VMPFQPMD5oaTr TR Peak Gr.53wlAaGRWL24taSd Pulmonary Vein S1 Kkjmcdna18.6cm/sD2 Sbqwewug64.7cm/s LEFT VENTRICLE The left ventricle cavity is small. There is mild concentric left ventricular hypertrophy. The left v entricular systolic function is normal and the ejection fraction is within normal range. The Ejection Fraction is 60-65%. There is normal LV segmental wall motion. Transmitral Doppler flow pattern is Gr maria elena I-abnormal relaxation pattern. RIGHT VENTRICLE The right ventricle is normal size. The right ventricular systolic function is normal. ATRIA The left atrium size is normal. The right atrium size is normal. The atrial septum is aneurysmal. No clear evidence of atrial level defect on doppler imaging. AORTIC VALVE The aortic valve is calcified but opens well. Doppler and Color Flow revealed no significant aortic r egurgitation. There is no significant aortic valvular stenosis. MITRAL VALVE The mitral valve is calcified but opens well. There is no evidence of mitral valve prolapse. There is no mitral valve stenosis. Doppler and Color-flow revealed trace mitral regurgitation. TRICUSPID VALVE The tricuspid valve is normal in structure and function. Doppler and Color Flow revealed trace tricus pid regurgitation. The PA pressure was estimated at 37 mmHg. There is no tricuspid valve stenosis. PULMONIC VALVE Doppler and Color Flow revealed mild pulmonic valvular regurgitation. There is no pulmonic valvular s tenosis. GREAT VESSELS The aortic root is normal in size. The ascending aorta is normal in size. The IVC is normal in size a nd collapses >50% with inspiration. PERICARDIAL EFFUSION There is no evidence of significant pericardial effusion. Critical Notification Critical Value: No <Conclusion> The left ventricular systolic function is normal and the ejection fraction is within normal range. Th e Ejection Fraction is 60-65%. There is normal LV segmental wall motion. The atrial septum is aneurysmal. No clear evidence of atrial level defect on doppler imaging. Doppler and Color Flow revealed trace tricuspid regurgitation. The PA pressure was estimated at 37 mm Hg. Signed by : Aris Antonio, Electronically Approved : 07/06/2020 16:44:45
--- NOTE | 2020-07-06 17:47 | EKG ---
[facility] [address] [place] [address] Test Date: 2020-07-06 Test Time: 09:09:17 Pat Name: LUH DOMINGUEZ Department: Room: Gender: F Multicultural Services Librarian: : 1940 Requested By: AIDAN TRINH Order Number: [id number] Reading MD: Measurements Intervals [place] Rate: 70 P: 34 MA: 172 QRS: 59 QRSD: 78 T: 63 QT: 382 QTc: 415 Interpretive Statements SINUS RHYTHM NO SPECIFIC ECG ABNORMALITIES RI6.01 No previous ECG available for comparison
[2020-07-06 18:00] VITALS: BP 142/59
[2020-07-06 18:05] VITALS: BP 149/64
[2020-07-06 18:10] VITALS: BP 127/60
[2020-07-06 22:25] VITALS: BP 141/60
[2020-07-07 02:18] VITALS: BP 133/58
[2020-07-07] MEDS ORDERED: LEVOTHYROXINE 75 MCG TABLET PO SCH (06:00)
[2020-07-07 07:00] VITALS: BP 138/68
--- NOTE | 2020-07-07 07:41 | PDOC ---
[employer] PROGRESS NOTE Date of Service DOS: DATE: 07/07/20 TIME: 07:40 Chief Complaint Chief Complaint Syncopal episode - dysautonomia, vasovagal Hypertension; controlled -advised to return to her previous regimen of 5 mg of amlodipine nightly and losartan 100 mg every morning Hypothyroidism -recommend decrease dose back to 75 mcg. As she has filled her 88 mcg dose she can take her dose for 2 days then hold on third day until she is ready for refill. COVID recovery (09/2019) History of Present Illness History of Present Illness Ms Marcelo is an 79yo F w/ PMHx HTN, hypothyroidism, GERD presents to the ER after syncopal episode at a grocery store 07/06/20 Patient states symptoms of trouble standing at checkout line across the store. She reports associated dizziness, blurry vision prior to her syncopal episode. She reportedly lost consciousness for a few seconds, but denies head injury. Upon EMS arrival her blood pressure was reportedly 80/40 mmHg, and she was placed in the supine position with improvement. She has a history of similar symptoms that initially began in 2017. Over the past several months she reports symptoms when she gets up to make breakfast and while walking around the house. She is supposed to have an outpatient cardiac evaluation several months back but this was canceled due to to her genesis the COVID-19 virus. She currently denies headache, neck pain, back pain. Will admit patient for further medical management. In better no telemetry events. No BPPV on PT examination. Negative ort hostatics. No abnormalities on echo. TSH returned low recommended reducing levothyroxine dosing and recommended reducing her amlodipine at home to once daily. Vitals/I&O Vitals/I&O: Vital Signs Date Time Temp Pulse Resp B/P (MAP) Pulse Ox O2 Delivery O2 Flow Rate FiO2 07/07/20 02:18 98.9 87 18 133/58 (83) 99 Room Air 98.9 I & O 07/06/20 07/06/20 07/07/20 15:00 23:00 07:00 Intake Total 550 ml Output Total 200 ml 700 ml Balance 350 ml -700 ml Physical Exam General: Alert, Oriented X3, Cooperative, No acute distress Heart: Regular rate Abdomen: Soft, No tenderness Extremities: No edema, Normal pulses Skin: No breakdown Labs Labs: Laboratory Tests Test 07/06/20 09:15 07/06/20 15:40 07/06/20 15:56 White Blood Count 5.6 x10^3/uL (4.0-11.0) Red Blood Count 4.43 x10^6/uL (3.50-5.40) Hemoglobin 13.6 g/dL (12.0-15.5) Hematocrit 39.9 % (36.0-47.0) Mean Corpuscular Volume 90 fL (79-100) Mean Corpuscular Hemoglobin 31 pg (25-35) Mean Corpuscular Hemoglobin Concent 34 g/dL (31-37) Red Cell Distribution Width 13.3 % (11.5-14.5) Platelet Count 266 x10^3/uL (140-400) Neutrophils (%) (Auto) 46 % (31-73) Lymphocytes (%) (Auto) 42 % (24-48) Monocytes (%) (Auto) 8 % (0-9) Eosinophils (%) (Auto) 3 % (0-3) Basophils (%) (Auto) 1 % (0-3) Neutrophils # (Auto) 2.6 x10^3/uL (1.8-7.7) Lymphocytes # (Auto) 2.4 x10^3/uL (1.0-4.8) Monocytes # (Auto) 0.4 x10^3/uL (0.0-1.1) Eosinophils # (Auto) 0.2 x10^3/uL (0.0-0.7) Basophils # (Auto) 0.1 x10^3/uL (0.0-0.2) Sodium Level 140 mmol/L (136-145) Potassium Level 3.5 mmol/L (3.5-5.1) Chloride Level 104 mmol/L (98-107) Carbon Dioxide Level 25 mmol/L (21-32) Anion Gap 11 (6-14) Blood Urea Nitrogen 13 mg/dL (7-20) Creatinine 0.9 mg/dL (0.6-1.0) Estimated GFR (Cockcroft-Gault) 72.7 Glucose Level 186 mg/dL (70-99) Calcium Level 9.6 mg/dL (8.5-10.1) Troponin I Quantitative < 0.017 ng/mL (0.000-0.055) < 0.017 ng/mL (0.000-0.055) Triglycerides Level 96 mg/dL (0-150) Cholesterol Level 180 mg/dL (0-200) LDL Cholesterol, Calculated 108 mg/dL (0-100) VLDL Cholesterol, Calculated 19 mg/dL (0-40) Non-HDL Cholesterol Calculated 127 mg/dL (0-129) HDL Cholesterol 53 mg/dL (40-60) Cholesterol/HDL Ratio 3.4 Thyroid Stimulating Hormone (TSH) 0.067 uIU/mL (0.358-3.74) Glucose (Fingerstick) 188 mg/dL (70-99) Assessment and Plan Assessmemt and Plan Problems Medical Problems: (1) Syncope Status: Acute Comment Review of Relevant I have reviewed the following items chucky (where applicable) has been applied. Medications: Current Medications Medications (Trade) Dose Ordered Sig/Meet Route PRN Reason Start Time Stop Time Status Last Admin Dose Admin Amlodipine Besylate (Norvasc) 5 mg DAILY PO 07/06/20 11:00 07/06/20 13:18 Aspirin (Aspirin Chewable) 81 mg DAILY PO 07/06/20 12:00 07/06/20 13:19 Famotidine (Pepcid) 20 mg BID PO 07/06/20 12:00 07/06/20 21:08 Lactobacillus Rhamnosus (Culturelle) 1 cap BID PO 07/06/20 12:00 07/06/20 21:08 Levothyroxine Sodium (Synthroid) 75 mcg DAILY06 PO 07/07/20 06:00 07/07/20 06:14 Justifications for Admission Other Justification Syncope EDIL REYES MD Jul 07, 2020 07:41
[2020-07-07 08:10] LABS: HEMATOCRIT 40.8 % (36.0-47.0); HEMOGLOBIN 13.9 g/dL (12.0-15.5); RED BLOOD COUNT 4.56 x10^6/uL (3.50-5.40); RED CELL DISTRIBUTION WIDTH 13.2 % (11.5-14.5); WHITE BLOOD COUNT 6.3 x10^3/uL (4.0-11.0)
[2020-07-07] MEDS: ASPIRIN CHEWABLE 81 MG TABLET. PO SCH (08:35)
[2020-07-07] MEDS: LACTOBACILLUS RHAMNOSUS GG 1 CAPSULE. PO SCH (08:35)
[2020-07-07] MEDS: FAMOTIDINE 20 MG TABLET. PO SCH (08:35)
[2020-07-07] MEDS: amLODIPine BESYLATE 10 MG TABLET PO SCH (08:36)
[2020-07-07] MEDS: LOSARTAN POTASSIUM 50 MG TABLET. PO SCH (08:37)
[2020-07-07 08:45] LABS: CREATININE 0.7 mg/dL (0.6-1.0); GFR 97.2; POTASSIUM 3.9 mmol/L (3.5-5.1)
[2020-07-07] MEDS ORDERED: LEVO75TA5 PO (10:55)
[2020-07-07 11:00] VITALS: BP 165/59
--- NOTE | 2020-07-07 11:14 | PDOC3 ---
Discharge Summary Visit Information Date of Admission: Jul 06, 2020 Date of Discharge: Jul 07, 2020 Admitting Diagnosis: Syncope Final Diagnosis Problems Medical Problems: (1) Syncope Status: Acute Brief Hospital Course Allergies Allergies Coded Allergies Type Severity Reaction Last Updated Verified No Known Drug Allergies 11/03/15 No Vital Signs Vital Signs Date Time Temp Pulse Resp B/P (MAP) Pulse Ox O2 Delivery O2 Flow Rate FiO2 07/07/20 08:37 76 138/68 07/07/20 07:00 97.5 18 99 Room Air 97.5 Lab Results Laboratory Tests Test 07/06/20 09:15 07/06/20 15:40 07/06/20 15:56 07/07/20 07:13 White Blood Count 5.6 x10^3/uL (4.0-11.0) 6.3 x10^3/uL (4.0-11.0) Red Blood Count 4.43 x10^6/uL (3.50-5.40) 4.56 x10^6/uL (3.50-5.40) Hemoglobin 13.6 g/dL (12.0-15.5) 13.9 g/dL (12.0-15.5) Hematocrit 39.9 % (36.0-47.0) 40.8 % (36.0-47.0) Mean Corpuscular Volume 90 fL (79-100) 90 fL (79-100) Mean Corpuscular Hemoglobin 31 pg (25-35) 30 pg (25-35) Mean Corpuscular Hemoglobin Concent 34 g/dL (31-37) 34 g/dL (31-37) Red Cell Distribution Width 13.3 % (11.5-14.5) 13.2 % (11.5-14.5) Platelet Count 266 x10^3/uL (140-400) 278 x10^3/uL (140-400) Neutrophils (%) (Auto) 46 % (31-73) Lymphocytes (%) (Auto) 42 % (24-48) Monocytes (%) (Auto) 8 % (0-9) Eosinophils (%) (Auto) 3 % (0-3) Basophils (%) (Auto) 1 % (0-3) Neutrophils # (Auto) 2.6 x10^3/uL (1.8-7.7) Lymphocytes # (Auto) 2.4 x10^3/uL (1.0-4.8) Monocytes # (Auto) 0.4 x10^3/uL (0.0-1.1) Eosinophils # (Auto) 0.2 x10^3/uL (0.0-0.7) Basophils # (Auto) 0.1 x10^3/uL (0.0-0.2) Sodium Level 140 mmol/L (136-145) 139 mmol/L (136-145) Potassium Level 3.5 mmol/L (3.5-5.1) 3.9 mmol/L (3.5-5.1) Chloride Level 104 mmol/L (98-107) 105 mmol/L (98-107) Carbon Dioxide Level 25 mmol/L (21-32) 24 mmol/L (21-32) Anion Gap 11 (6-14) 10 (6-14) Blood Urea Nitrogen 13 mg/dL (7-20) 17 mg/dL (7-20) Creatinine 0.9 mg/dL (0.6-1.0) 0.7 mg/dL (0.6-1.0) Estimated GFR (Cockcroft-Gault) 72.7 97.2 Glucose Level 186 mg/dL (70-99) 87 mg/dL (70-99) Calcium Level 9.6 mg/dL (8.5-10.1) 9.0 mg/dL (8.5-10.1) Troponin I Quantitative < 0.017 ng/mL (0.000-0.055) < 0.017 ng/mL (0.000-0.055) Triglycerides Level 96 mg/dL (0-150) Cholesterol Level 180 mg/dL (0-200) LDL Cholesterol, Calculated 108 mg/dL (0-100) VLDL Cholesterol, Calculated 19 mg/dL (0-40) Non-HDL Cholesterol Calculated 127 mg/dL (0-129) HDL Cholesterol 53 mg/dL (40-60) Cholesterol/HDL Ratio 3.4 Thyroid Stimulating Hormone (TSH) 0.067 uIU/mL (0.358-3.74) Glucose (Fingerstick) 188 mg/dL (70-99) Laboratory Tests Test 07/06/20 15:40 07/06/20 15:56 07/07/20 07:13 Troponin I Quantitative < 0.017 ng/mL (0.000-0.055) Glucose (Fingerstick) 188 mg/dL (70-99) White Blood Count 6.3 x10^3/uL (4.0-11.0) Red Blood Count 4.56 x10^6/uL (3.50-5.40) Hemoglobin 13.9 g/dL (12.0-15.5) Hematocrit 40.8 % (36.0-47.0) Mean Corpuscular Volume 90 fL (79-100) Mean Corpuscular Hemoglobin 30 pg (25-35) Mean Corpuscular Hemoglobin Concent 34 g/dL (31-37) Red Cell Distribution Width 13.2 % (11.5-14.5) Platelet Count 278 x10^3/uL (140-400) Sodium Level 139 mmol/L (136-145) Potassium Level 3.9 mmol/L (3.5-5.1) Chloride Level 105 mmol/L (98-107) Carbon Dioxide Level 24 mmol/L (21-32) Anion Gap 10 (6-14) Blood Urea Nitrogen 17 mg/dL (7-20) Creatinine 0.7 mg/dL (0.6-1.0) Estimated GFR (Cockcroft-Gault) 97.2 Glucose Level 87 mg/dL (70-99) Calcium Level 9.0 mg/dL (8.5-10.1) Brief Hospital Course Ms Marcelo is an 79yo F w/ PMHx HTN, hypothyroidism, GERD presents to the ER after syncopal episode at a grocery store 07/06/20 Patient states symptoms of trouble standing at checkout line across the store. She reports associated dizziness, blurry vision prior to her syncopal episode. She reportedly lost consciousness for a few seconds, but denies head injury. Upon EMS arrival her blood pressure was reportedly 80/40 mmHg, and she was placed in the supine position with improvement. She has a history of similar symptoms that initially began in 2017. Over the past several months she reports symptoms when she gets up to make breakfast and while walking around the house. She is supposed to have an outpatient cardiac evaluation several months back but this was canceled due to to her genesis the COVID-19 virus. She currently denies headache, neck pain, back pain. Orthostatics negative. Telemetry with no events. TSH low 0.06. Evaluated by cardiology no signs of cardiac event. Echo: The left ventricular systolic function is normal and the ejection fraction is within normal range. The Ejection Fraction is 60-65%. There is normal LV segmental wall motion. The atrial septum is aneurysmal. No clear evidence of atrial level defect on doppler imaging. Doppler and Color Flow revealed trace tricuspid regurgitation. The PA pressure was estimated at 37 mmHg. Consults: Cardiology Problem list: Syncopal episode - dysautonomia, vasovagal Hypertension; controlled -advised to return to her previous regimen of 5 mg of amlodipine nightly and losartan 100 mg every morning Hypothyroidism -recommend decrease dose back to 75 mcg. As she has filled her 88 mcg dose she can take her dose for 2 days then hold on third day until she is ready for refill. COVID recovery (09/2019) Greater than 30 minutes spent on d/c home Discharge Information Condition at Discharge: Improved Follow Up: Weeks Disposition/Orders: D/C to Home Scheduled Amlodipine Besylate (Amlodipine Besylate) 10 Mg Tablet, 0.5 TAB PO BID for , #30 Ref 5 (Reported) Entered as Reported by: KELVIN MARCIAL on 02/24/14 0706 Last Action: Edited on 07/06/20 161 by Patricia Short Ascorbic Acid (Vitamin C) 500 Mg Tab.chew, 500 MG PO BID for vitamin, (Reported) Entered as Reported by: AAKASH LEE on 09/13/192001 Last Action: HELD on 07/06/20 1100 by ADRIANE BANKS MD Aspirin (Aspirin) 81 Mg Tab.chew, 81 MG PO DAILY, (Reported) Entered as Reported by: ANGEL JIMENEZ on 11/03/15 0900 Last Action: Continued on 07/06/20 1100 by ADRIANE BANKS MD Famotidine (Famotidine) 20 Mg Tablet, 20 MG PO BID for GERD, (Reported) Entered as Reported by: CHRISTOPHER BACA on 09/13/19 1400 Last Action: Continued on 07/06/20 1100 by ADRIANE BANKS MD Lactobacillus Rhamnosus Gg (Culturelle) 1 Each Cap.sprink, 1 CAP PO BID for PROBIOTIC for 30 Days, #60 Prescribed by: FERNANDEZ CANNON MD on 09/16/19 0910 Last Action: Continued on 07/06/201099 by ADRIANE BANKS MD Levothyroxine Sodium (Levothyroxine Sodium) 75 Mcg Tablet, 75 MCG PO DAILY06 for Hypothyroidism for 90 Days, #90 Prescribed by: EDIL REYES MD on 07/07/20 1055 Multivitamin (Multi Vitamin Daily) 1 Each Tablet, 1 TAB PO DAILY for for 30 Days, #30 Ref 0 (Reported) Entered as Reported by: Patricia Short on 07/06/201610 Last Taken: 1 on Unknown Date & Time Last Action: New Order on 07/06/201610 by Patricia Short Olmesartan Medoxomil (Benicar) 40 Mg Tablet, 1 TAB PO DAILY for HTN for 30 Days, #30 Ref 0 (Reported) Entered as Reported by: CHRISTOPHER BAAC on 09/13/19 1404 Last Action: Converted on 07/06/201099 by ADRIANE BANKS MD Discontinued Medications Levothyroxine Sodium (Levothyroxine Sodium) 75 Mcg Tablet, 1 TAB PO DAILY, #30 Ref 5 (Reported) Discontinued Reason: Prescription changed Entered as Reported by: KELVIN MARCIAL on 02/24/14 0706 Last Action: Continued on 07/06/201099 by ADRIANE BANKS MD Levothyroxine Sodium (Levothyroxine Sodium) 88 Mcg Tablet, 88 MCG PO DAILYAC for THYROID SUPPLEMENT, #30 Ref 0 (Reported) Entered as Reported by: Patricia Short on 07/06/201610 Last Action: New Order on 07/06/201610 by Patricia Short Justicifation of Admission Dx: Justifications for Admission: Justification of Admission Dx: Yes EDIL REYES MD Jul 07, 2020 11:14
--- NOTE | 2020-07-07 11:21 | NUR ---
SS following for discharge planning. SS reviewed pt chart and discussed with pt RN. Pt is from home and is currently on room air. PT/OT recommended home independent. Discharge order on the chart for home with self care.
--- NOTE | 2020-07-07 13:03 | PDOC ---
TL LOW[facility] GENERALIST 07/07/20 1303: CARDIO Progress Notes Date and Time Date of Service 07/07/20 Time of Evaluation 1245 Subjective Subjective: No Chest Pain, No shortness of breath, No Palpitations, No Dizziness Vitals Vitals Vital Signs Date Time Temp Pulse Resp B/P (MAP) Pulse Ox O2 Delivery O2 Flow Rate FiO2 07/07/20 11:00 97.6 88 20 165/59 (94) 99 Room Air 97.6 Weight Weight [ ] Input and Output Intake and Output Intake and Output 07/07/20 07:00 Intake Total 550 ml Output Total 900 ml Balance -350 ml Intake Oral 550 ml Output Urine Total 900 ml # Voids 1 Laboratory Labs Laboratory Tests Test 07/06/20 15:40 07/06/20 15:56 07/07/20 07:13 Troponin I Quantitative < 0.017 ng/mL (0.000-0.055) Glucose (Fingerstick) 188 mg/dL (70-99) White Blood Count 6.3 x10^3/uL (4.0-11.0) Red Blood Count 4.56 x10^6/uL (3.50-5.40) Hemoglobin 13.9 g/dL (12.0-15.5) Hematocrit 40.8 % (36.0-47.0) Mean Corpuscular Volume 90 fL (79-100) Mean Corpuscular Hemoglobin 30 pg (25-35) Mean Corpuscular Hemoglobin Concent 34 g/dL (31-37) Red Cell Distribution Width 13.2 % (11.5-14.5) Platelet Count 278 x10^3/uL (140-400) Sodium Level 139 mmol/L (136-145) Potassium Level 3.9 mmol/L (3.5-5.1) Chloride Level 105 mmol/L (98-107) Carbon Dioxide Level 24 mmol/L (21-32) Anion Gap 10 (6-14) Blood Urea Nitrogen 17 mg/dL (7-20) Creatinine 0.7 mg/dL (0.6-1.0) Estimated GFR (Cockcroft-Gault) 97.2 Glucose Level 87 mg/dL (70-99) Calcium Level 9.0 mg/dL (8.5-10.1) Physical Exam HEENT: Neck Supple W Full Motion Chest: Symmetric LUNGS: Clear to Auscultation Heart: RRR Abdomen: Soft N/T Extremities: No Edema Neurology: alert, oriented, follow commands Assessment Assessment 1. Syncopal episode; post probably vasovagal. Tele without significant arrhythmia. Orthos negative. Echo with preserved LV systolic function, no WMA 2. Hypertension; controlled 3. Hypothyroidism 4. COVID recovery (09/2019) Recommendations Outpatient event monitor arranged to r/o contributing arrhythmia Follow up in our office with Dr. Mcgregor; patient would like to check her scheduled at home prior to arranging. She will call and scheduled appointment. Consider outpatient ischemic evaluation Okay to discharge from a CV standpoint Justicifation of Admission Dx: Justifications for Admission: Justification of Admission Dx: Yes COTY MCGREGOR MD 07/07/20 889: CARDIO Progress Notes Assessment Assessment Patient seen and examined. Agree with CONSERVATION SCIENTIST's assessment and plan. Syncope most probably vasovagal. Telemetry did not show any significant arrhythmias so far. 2D echo showed normal LVF without any significant structural abnormalities Plan for outpatient event monitor TL LOWERY APRN Jul 07, 2020 13:03 COTY MCGREGOR MD Jul 07, 2020 18:49
[2020-07-08 00:08] LABS: HEMOGLOBIN A1C 5.6 % (4.8-5.6)
== END 2020-07-07 14:30 | disposition home or self-care (01) ==
LOC: ER 08:56 → 2 SOUTH 10:48
PROVIDERS: ADMIT Family Medicine; ATTEND Family Medicine
DX: R55 Syncope and collapse (principal); I10 Essential (primary) hypertension; E03.9 Hypothyroidism, unspecified; K21.9 Gastro-esophageal reflux disease without esophagitis; Z98.49 Cataract extraction status, unspecified eye; Z79.82 Long term (current) use of aspirin; Z79.899 Other long term (current) drug therapy; W19.XXXA Unspecified fall, initial encounter; Y93.89 Activity, other specified; Y92.89 Other specified places as the place of occurrence of the external cause; Y99.8 Other external cause status
CPT/HCPCS: 36415; 71045; 80048; 80061; 82962; 83036; 84443; 84484; 85025; 85027; 93005; 93306; 97161; 97165; 97535; 99285; G0378; G0379

== ENCOUNTER → 2020-08-02 | Outpatient (CLI) | payer MEDICARE ==
[2020-07-07 11:00] VITALS: BP 165/59
[~2020-08-02] MED LIST changes: +LEVO88TA4 PO; +MULT-245 PO; +REGADENOSON 0.4 MG/5 ML DISP.SYRIN. IV ONE
--- NOTE | 2020-08-02 13:16 | RAD ---
MR#: [id number] Date of Study: 08/02/2020 Ordering Physician: COTY ALVAREZ, Referring Physician: JANKI MATOS Tech: ARUN Lobo, KETTY (R) (N) APPROVED REPORT Test Type: Pharmacological Stress Nurse/Tech: Ann Tran R.N. Test Indications: syncope, dyspnea Cardiac History: htn, family hx Medications: See Electronic Medical Record Medical History: See Electronic Medical Record Resting ECG: SR w/ LBBB- ST elevation in leads V1-v3 Resting Heart Rate: 71 bpm Resting Blood Pressure: 135/54mmHg Pretest Chest Pain: No chest pain Nurse/Tech Notes S1S2, lungs CTA Consent: The procedure was explained to the patient in lay terms. Informed consent was witnessed. Norbert eout was entered into [facility] [place]. History and Stress Test performed by ARUN Lobo, KETTY (R) (N) Pharm. Details Pharmacologic stress testing was performed using 0.4mg per 5ml of regadenoson given intravenously ove r 7-10 seconds. POST EXERCISE Reason for Termination: Infusion complete Max HR: 107 bpm Max Blood Pressure: 144/56mmHg Blood Pressure response to exercise: Normal blood pressure response during stress. Heart Rate response to exercise: wnl Chest Pain: No. Arrhythmia: No. ST Change: No. INTERPRETATION Stress EKG Conclusion: Baseline EKG showed sinus rhythm with LBBB. Non-diagnostic changes at peak st ress. No arrhythmias. Imaging Protocol IMAGE PROTOCOL: Rest Tc-99m/stress Tc-99m 1 day Rest: Stress: Viability: Radiopharm.Tc99m [id number] Sestamibi Dose10.2mCi 32mCi Img Date 08/02/2020 08/02/2020 Inj-Img Sitb80gwy. 60min. Rest Admin Site:IV - Left AntecubitalAdministrator:ANN MARIE Tong Stress Admin Site: IV - Left AntecubitalAdministrator: ANN MARIE Tong STRESS DATA End Diast. Vol.24.0mlLVEDV index BSA16.0ml End Syst. Vol.2.0mlLVESV index BSA1.0ml Myocardial Mass66.0gEject. Dvgszuzn46.0% Stress Scores Regional WT1.00Summed WT16.00 Regional WM0.00Summed WM0.00 Study quality was good. Left Ventricular size was Normal at Rest and Stress. Lung uptake was . Left Ventricular ejection fraction is >80%. The rest and stress images show normal perfusion, normal contraction and thickening. LV Perf. Quant 17 Seg. SSS0.00 17 Seg. SRS4.00 17 Seg. SDS0.00 Stress Defect Extent (% LAD)0.00Rest Defect Extent (% LAD)1.90Rev. Defect Extent (% LAD)0.00 Stress Defect Extent (% LCX) 0.00Rest Defect Extent (% LCX)0.00Rev. Defect Extent (% LCX)0.00 Stress Defect Extent (% RCA)0.00Rest Defect Extent (% RCA)3.30Rev. Defect Extent (% RCA)0.00 Stress Defect Extent (% CARROLL)0.00Rest Defect Extent (% CARROLL)3.90Rev. Defect Extent (% CARROLL)0.00 IMPRESSION RV Function: Normal, Abnormal, Mildly Reduced, Moderately Reduced, Severely Reduced Conclusion 1. Regadenoson cardioisotope stress test did not show any evidence of ischemia or infarct. 2. Normal left ventricular systolic function with ejection fraction calculated at >80%. 3. Low risk for cardiac events. Signed by : Coty Alvarez, Electronically Approved : 08/02/2020 13:15:56
== END ==
LOC: NM 09:11
PROVIDERS: ATTEND Internal Medicine Cardiovascular Disease
DX: R55 Syncope and collapse (principal); R06.00 Dyspnea, unspecified
CPT/HCPCS: 78452; 93017; A9500; J2785

== ENCOUNTER → 2020-09-23 | Outpatient (CLI) | payer MEDICARE ==
[~2020-09-23] MED LIST changes: -REGADENOSON 0.4 MG/5 ML DISP.SYRIN. IV ONE
--- NOTE | 2020-09-23 13:55 | RAD ---
EXAM: Carotid Doppler sonogram. HISTORY: Carotid stenosis. Atherosclerosis. TECHNIQUE: Bearden scale and color Doppler sonographic evaluation of the neck with spectral waveform yue lysis was performed and static images are submitted for review. FINDINGS: The peak systolic velocity within the right common carotid artery is 82 cm/sec. The peak sy stolic velocity within the right internal carotid artery is 81 cm/sec and the end diastolic velocity within the right internal carotid artery is 21 cm/sec. The right ICA/CCA ratio is 1.02. The peak systolic velocity within the left common carotid artery is 95 cm/sec. The peak systolic [place] within the left internal carotid artery is 114 cm/sec and the end diastolic velocity within the left internal carotid artery is 20 cm/sec. The left ICA/CCA ratio is 1.44. There is normal antegrade flow within both vertebral arteries. IMPRESSION: No Doppler evidence of greater than 50 percent stenosis involving the internal carotid ar teries. PQRS Compliance Statement - Stenosis calculations for CT, MR and conventional angiography are based u hayes measurement of the distal ICA diameter in accordance with the NASCET methodology. Stenosis calcu lations for carotid ultrasound studies are derived from validated velocity criteria which are known t o correlate with the NASCET methodology. Electronically signed by: Shy Tinoco MD (09/23/2020 1:53 PM) [id number]
== END ==
LOC: US 11:47
PROVIDERS: ATTEND Family Medicine
DX: I65.22 Occlusion and stenosis of left carotid artery (principal)
CPT/HCPCS: 93880

== ENCOUNTER → 2020-11-28 | Outpatient (CLI) | payer MEDICARE ==
--- NOTE | 2020-11-28 10:13 | RAD ---
EXAM: Bilateral digital screening mammogram with tomosynthesis. HISTORY: 79-year-old female presents for screening mammography. TECHNIQUE: Full-field digital craniocaudal and mediolateral oblique 2D and 3D tomosynthesis images of both breasts are obtained for evaluation. Computer aided detection was applied. COMPARISON: 11/26/2019 and 11/24/2018 and 11/21/2017 BREAST PARENCHYMAL DENSITY: Level B - Scattered fibroglandular densities. FINDINGS: There is increasing nodularity within the 9:00 position of the right breast at mid to poste rior depth compared to prior studies. There are additional areas of asymmetry and nodularity which ar e stable when allowing for differences in patient position. There is no new suspicious calcification or architectural distortion. IMPRESSION: BI-RADS Category 0: Incomplete. Additional imaging needed. RECOMMENDATION: Further evaluation with a right breast sonogram is recommended to assess nodularity a t the 9:00 position approximately 5 to 6 cm from the nipple. If your mammogram demonstrates that you have dense breast tissue, which could hide abnormalities, and if you have other risk factors for breast cancer that have been identified, you might benefit from s upplemental screening tests that may be suggested by your ordering physician. Dense breast tissue, i n and of itself, is a relatively common condition. This information is not provided to cause undue c oncern, but rather to raise your awareness and to promote discussion with your physician regarding th e presence of other risk factors, in addition to dense breast tissue. A report of your mammography re sults will be sent to you and your physician. You should contact your physician if you have any ques tions or concerns regarding this report. Mammography is a sensitive method for finding small breast cancers, but it does not detect them all a nd is not a substitute for careful clinical examination. A negative mammogram does not negate a clin ically suspicious finding and should not result in delay in biopsying a clinically suspicious abnorma lity. PQRS compliance statement - Patient information was entered into a reminder system with a target due date for the next mammogram. "Our facility is accredited by the [employer] Mammography Program." Electronically signed by: Shy iTnoco MD (11/28/2020 10:11 AM) [id number]
== END ==
LOC: MAMMO 08:15
PROVIDERS: ATTEND Family Medicine
DX: Z12.31 Encounter for screening mammogram for malignant neoplasm of breast (principal); N64.89 Other specified disorders of breast
CPT/HCPCS: 77063; 77067

== ENCOUNTER → 2020-12-01 | Outpatient (CLI) | payer MEDICARE ==
--- NOTE | 2020-12-01 12:17 | RAD ---
EXAM: Right breast sonogram. HISTORY: 79-year-old female presents for evaluation of nodularity within the right breast demonstrate d on a screening mammogram dated 11/28/2020. TECHNIQUE: Sonographic imaging of the right breast targeted to the site of mammographic nodularity wa s performed. COMPARISON: 11/28/2020. FINDINGS: There is a 6 mm benign cyst at the 9:00 position 3 cm from the nipple. There is an adjacent 6 mm cyst with internal echoes likely due to debris in this location. There are dilated ducts within the 9:00 retroareolar location. No intraductal lesion is seen. There are benign axillary lymph nodes . IMPRESSION: 1. Small benign cysts at the 9:00 position 3 cm from the nipple, one of which likely corresponds with the mammographic finding of concern. 2. No suspicious sonographic finding. 3. BI-RADS Category 2: Benign finding(s). Annual mammography is recommended. Electronically signed by: Shy Tinoco MD (12/01/2020 12:15 PM) [id number]
== END ==
LOC: US 11:35
PROVIDERS: ATTEND Family Medicine
DX: N60.01 Solitary cyst of right breast (principal); N63.10 Unspecified lump in the right breast, unspecified quadrant
CPT/HCPCS: 76641